=== PATIENT | male | born 1960 | race Caucasian/White ===

== ENCOUNTER 2017-02-27 15:21 | Inpatient (IN) ==
--- NOTE | 2017-02-27 15:38 | Emergency Department Note ---
Disposition Clinical Impression: MOI (acute kidney injury), Dilated bowel Disposition: Admitted As Inpatient Condition: Undetermined Referrals: NO,PCP [Primary Care Provider] - Forms: ED Satisfaction Letter Time of Disposition: 19:04 General Adult HPI - General Chief complaint: ED Altered Mental Status Stated complaint: Chest Pain/AMS Time Seen by Provider: 02/27/17 15:27 Source: patient, EMS Mode of arrival: EMS Limitations: no limitations Nursing Notes Reviewed: Yes Vital Signs Reviewed: Yes - History of Present Illness HPI Narrative: 56-year-old male with history of hypertension, hypothyroidism, Crohn's disease arrives to [facility] emergency department by EMS after the patient was seen in urgent care for complaint of chest pain 2 days. The patient states that he also is experiencing tachypnea and difficulty breathing with this. The patient also states that he is having a left-sided abdominal pain. The patient has been taking all of his medication as prescribed. Patient was sent from urgent care to [facility] emergency department for further evaluation. It was noted urgent care that the patient was altered and when asking the patient was questioned he states whenever he stands up he feels odd. The patient has a blood pressure of 93/51 at this time. He denies any difficulty breathing. The patient's O2 saturation is 94% on 2 L nasal cannula in the room. He does have a history of DVT and is currently taking no anticoagulation. The patient's last DVT was roughly 4 years ago. The patient denies any other complaints at this time to include nausea, vomiting, diarrhea, focalized weakness. He has received 500 mL normal saline via IV route per EMS and arrival to the emergency department. Onset (ago): day(s) (2) Pain Severity: mild Pain Scale: 2 Improves with: nothing Worsens with: nothing - Related Data Home Medications Medication Instructions Recorded Confirmed Amitriptyline HCl 150 mg PO HS 02/27/17 02/27/17 BuPROPion XL (24 HR) [Wellbutrin 150 mg PO DAILY 02/27/17 02/27/17 XL] Cholecalciferol (D-3) [Vitamin D] 5,000 unit PO DAILY 02/27/17 02/27/17 Dicyclomine [Bentyl] 20 mg PO TIDWM 02/27/17 02/27/17 Gabapentin [Neurontin] 100 mg PO TID 02/27/17 02/27/17 Hydrocortisone 1% OINT [Cortaid] 1 appl TP BID PRN 02/27/17 02/27/17 Levothyroxine [Synthroid] 150 mcg PO DAILY 02/27/17 02/27/17 Lipase/Protease/Amylase [Creon Dr 1 each PO TIDWM 02/27/17 02/27/17 12,000 Units Capsule] Metoprolol [Lopressor] 50 mg PO BID 02/27/17 02/27/17 NIFEdipine [Nifedipine ER] 90 mg PO DAILY 02/27/17 02/27/17 Omeprazole [PriLOSEC] 20 - 40 mg PO DAILY 02/27/17 02/27/17 Ondansetron HCl [Zofran] 4 mg PO Q8H PRN 02/27/17 02/27/17 Oxycodone HCl [Roxicodone 30 MG 30 mg PO Q8HR 02/27/17 02/27/17 Immed Release] Allergies Allergy/AdvReac Type Severity Reaction Status Date / Time morphine Allergy Weakness Verified 06/25/15 16:27 NSAIDS (Non-Steroidal Allergy See Verified 06/25/15 16:27 Anti-Inflamma Comments All systems ED: reviewed and negative except as stated. Constitutional: Denies: fever, chills, weakness Eyes: Denies: eye pain, eye discharge, vision change Cardiovascular: Reports: chest pain, dyspnea on exertion. Denies: palpitations Respiratory: Reports: dyspnea. Denies: cough, wheezes, hemoptysis, stridor, sputum production Gastrointestinal: Reports: abdominal pain. Denies: nausea, vomiting, diarrhea, constipation, hematemesis, melena, hematochezia Genitourinary: Denies: urgency, dysuria, frequency, hematuria Musculoskeletal: Denies: back pain, neck pain, arthralgia, myalgia Neurological: Denies: headache, weakness, numbness, paresthesias, confusion, abnormal gait, vertigo Past Medical History - Past Medical History Attestation: Yes The following information was validated with the patient. Source: patient Medical history: Reports: DVT, hypertension, thyroid disease (Hypothyroidism), other (Crohn's disease of small and large intestines; CMV Colitis; Chronic back pain; Pancreatic Insufficiency; Chronic abdominal pain; Iron defiency anemia; Imunocompromised; Alopecia totalis; Eczema) Surgical history: Reports: appendectomy, colectomy Psychiatric history: Reports: no psych history - Social History Smoking Status: Unknown if ever smoked Smokeless Tobacco Status: No Alcohol use: Reports: rarely Drug use: Reports: none Physical Exam - General Limitations: no limitations General appearance: alert, in no apparent distress - Head Head exam: atraumatic, normocephalic, normal inspection - Eye Eye exam: Present: normal appearance, PERRL, EOMI - Neck Neck exam: Present: normal inspection - Chest Chest inspection: Present: normal inspection, symmetric chest wall rise - Respiratory Respiratory exam: Present: normal lung sounds bilaterally - Cardiovascular Cardiovascular exam: Present: regular rate, normal rhythm, normal heart sounds - Abdominal Exam Abdominal exam: Present: soft, tenderness, normal bowel sounds. Absent: distention, guarding, rebound, rigidity Course - Consultations Consultation #1: Spoke with Dr. Banerjee with regards to the multiple dilated small bowel loops. We agreed that this is not a surgical concern at this time. Time: 18:35 Vital Signs Temperature 98.5 F 02/27/17 15:31 Pulse Rate 86 02/27/17 15:31 Respiratory Rate 18 02/27/17 15:31 Blood Pressure 92/60 02/27/17 15:31 O2 Sat by Pulse Oximetry 92 02/27/17 15:31 Temperature 98.5 F 02/27/17 15:31 Pulse Rate 69 02/27/17 17:52 Respiratory Rate 16 02/27/17 17:52 Blood Pressure 114/70 02/27/17 17:52 O2 Sat by Pulse Oximetry 90 02/27/17 17:52 Oxygen Delivery Oxygen Delivery Nasal Cannula Medical Decision Making - [facility] Narrative Medical decision making narrative: Patient hypotension improved with 2 boluses of fluid. The patient is feeling much better now. The patient does have a new acute kidney injury with a creatinine of 4.94 and GFR 12. The patient also CT scan demonstrated multiple dilated bowel loops. The patient states however that he is begun having passing gas here in the emergency department. He said his pain is improved. The patient had an elevated d-dimer and VQ scan is currently pending. Pelvis information will admit the patient to the hospital. Accepted by the hospitalist. - Medical Records Medical records reviewed: Yes I reviewed the patient's medical records. - Lab Data Lab results reviewed: Yes I reviewed the patient's lab results. Result diagrams: 02/27/17 15:58 02/27/17 15:58 Lab Results 02/27/17 02/27/17 02/27/17 Range/Units 15:56 15:58 15:58 WBC 8.6 (4.3-11.1) K/mcL RBC 4.18 L (4.19-5.50) M/mcL Hgb 10.5 L (12.9-16.9) g/dL Hct 34.8 L (37.5-50.1) % MCV 83.3 (83.0-100.0) fL MCH 25.1 L (28.0-33.3) pg MCHC 30.2 L (31.6-35.5) g/dL RDW 14.7 H (11.5-14.5) % Plt Count 334 (140-400) K/mcL MPV 10.0 (9.4-12.4) fL Immature Gran % 0.2 (0-4) % Seg Neutrophils % 47.0 % Lymphocytes % 42.3 % Monocytes % 7.1 % Eosinophils % 2.9 % Basophils % 0.5 % Neutrophils # 4.0 (1.6-8.9) K/mcL Lymphocytes # 3.6 (0.6-4.6) K/mcL Monocytes # 0.6 (0.0-1.3) K/mcL Eosinophils # 0.3 (0.0-0.6) K/mcL Basophils # 0.0 (0.0-0.2) K/mcL Platelet Estimate Normal (Normal) Immature Plt Fraction 3.3 (1.1-6.1) % D-Dimer (0-500) ng/mLFEU Sodium 137 (136-145) mEq/L Potassium 5.2 H (3.5-4.5) mEq/L Chloride 109 (98-109) mEq/L Carbon Dioxide 19 (19-29) mEq/L BUN 45 H (8-26) mg/dL Creatinine 4.94 H (0.72-1.25) mg/dL Est GFR ( Amer) 15 L (> 60) Est GFR (Non-Af Amer) 12 L (> 60) BUN/Creatinine Ratio 9 (6-26) Glucose 93 (70-99) mg/dL Calculated Osmolality 295 (280-300) Lactic Acid (0.5-2.2) mmol/L Calcium 8.2 L (8.6-10.8) mg/dL Total Bilirubin 0.3 (0.2-1.2) mg/dL AST 81 H (5-34) Units/L ALT 27 (0-55) Units/L Alkaline Phosphatase 104 (38-126) Units/L Troponin I (0-0.03) ng/mL Serum Total Protein 7.7 (6.0-8.3) g/dL Albumin 3.9 (3.5-5.0) g/dL Globulin 3.8 H (2.4-3.5) g/dL Albumin/Globulin Ratio 1.0 L (1.1-2.2) TSH (0.350-4.840) mcIU/mL Urine Color Yellow (Yellow) Urine Clarity Clear (Clear) Urine pH 5.5 (5.0-8.0) pH Units Ur Specific Leland 1.025 (1.010-1.025) Urine Protein 30 H (Neg-Trace) mg/dL Urine Glucose (UA) Normal (Normal) mg/dL Urine Ketones Negative (Negative) mg/dL Urine Blood Moderate H (Negative) Urine Nitrite Negative (Negative) Urine Bilirubin Negative (Negative) Urine Urobilinogen Normal (Normal) mg/dL Ur Leukocyte Esterase Negative (Negative) Urine Microscopic RBC 5-15 H (0-3) per hpf Urine Microscopic WBC 0-3 (0-3) per hpf Urine Bacteria Few (None-Few) per hpf Ur Culture Indicated? NO (NO) 02/27/17 02/27/17 02/27/17 Range/Units 15:58 15:58 15:58 WBC (4.3-11.1) K/mcL RBC (4.19-5.50) M/mcL Hgb (12.9-16.9) g/dL Hct (37.5-50.1) % MCV (83.0-100.0) fL MCH (28.0-33.3) pg MCHC (31.6-35.5) g/dL RDW (11.5-14.5) % Plt Count (140-400) K/mcL MPV (9.4-12.4) fL Immature Gran % (0-4) % Seg Neutrophils % % Lymphocytes % % Monocytes % % Eosinophils % % Basophils % % Neutrophils # (1.6-8.9) K/mcL Lymphocytes # (0.6-4.6) K/mcL Monocytes # (0.0-1.3) K/mcL Eosinophils # (0.0-0.6) K/mcL Basophils # (0.0-0.2) K/mcL Platelet Estimate (Normal) Immature Plt Fraction (1.1-6.1) % D-Dimer 1875 H (0-500) ng/mLFEU Sodium (136-145) mEq/L Potassium (3.5-4.5) mEq/L Chloride (98-109) mEq/L Carbon Dioxide (19-29) mEq/L BUN (8-26) mg/dL Creatinine (0.72-1.25) mg/dL Est GFR ( Amer) (> 60) Est GFR (Non-Af Amer) (> 60) BUN/Creatinine Ratio (6-26) Glucose (70-99) mg/dL Calculated Osmolality (280-300) Lactic Acid (0.5-2.2) mmol/L Calcium (8.6-10.8) mg/dL Total Bilirubin (0.2-1.2) mg/dL AST (5-34) Units/L ALT (0-55) Units/L Alkaline Phosphatase (38-126) Units/L Troponin I 0.00 (0-0.03) ng/mL Serum Total Protein (6.0-8.3) g/dL Albumin (3.5-5.0) g/dL Globulin (2.4-3.5) g/dL Albumin/Globulin Ratio (1.1-2.2) TSH 8.419 H (0.350-4.840) mcIU/mL Urine Color (Yellow) Urine Clarity (Clear) Urine pH (5.0-8.0) pH Units Ur Specific Leland (1.010-1.025) Urine Protein (Neg-Trace) mg/dL Urine Glucose (UA) (Normal) mg/dL Urine Ketones (Negative) mg/dL Urine Blood (Negative) Urine Nitrite (Negative) Urine Bilirubin (Negative) Urine Urobilinogen (Normal) mg/dL Ur Leukocyte Esterase (Negative) Urine Microscopic RBC (0-3) per hpf Urine Microscopic WBC (0-3) per hpf Urine Bacteria (None-Few) per hpf Ur Culture Indicated? (NO) 02/27/17 Range/Units 15:58 WBC (4.3-11.1) K/mcL RBC (4.19-5.50) M/mcL Hgb (12.9-16.9) g/dL Hct (37.5-50.1) % MCV (83.0-100.0) fL MCH (28.0-33.3) pg MCHC (31.6-35.5) g/dL RDW (11.5-14.5) % Plt Count (140-400) K/mcL MPV (9.4-12.4) fL Immature Gran % (0-4) % Seg Neutrophils % % Lymphocytes % % Monocytes % % Eosinophils % % Basophils % % Neutrophils # (1.6-8.9) K/mcL Lymphocytes # (0.6-4.6) K/mcL Monocytes # (0.0-1.3) K/mcL Eosinophils # (0.0-0.6) K/mcL Basophils # (0.0-0.2) K/mcL Platelet Estimate (Normal) Immature Plt Fraction (1.1-6.1) % D-Dimer (0-500) ng/mLFEU Sodium (136-145) mEq/L Potassium (3.5-4.5) mEq/L Chloride (98-109) mEq/L Carbon Dioxide (19-29) mEq/L BUN (8-26) mg/dL Creatinine (0.72-1.25) mg/dL Est GFR ( Amer) (> 60) Est GFR (Non-Af Amer) (> 60) BUN/Creatinine Ratio (6-26) Glucose (70-99) mg/dL Calculated Osmolality (280-300) Lactic Acid 0.6 (0.5-2.2) mmol/L Calcium (8.6-10.8) mg/dL Total Bilirubin (0.2-1.2) mg/dL AST (5-34) Units/L ALT (0-55) Units/L Alkaline Phosphatase (38-126) Units/L Troponin I (0-0.03) ng/mL Serum Total Protein (6.0-8.3) g/dL Albumin (3.5-5.0) g/dL Globulin (2.4-3.5) g/dL Albumin/Globulin Ratio (1.1-2.2) TSH (0.350-4.840) mcIU/mL Urine Color (Yellow) Urine Clarity (Clear) Urine pH (5.0-8.0) pH Units Ur Specific Leland (1.010-1.025) Urine Protein (Neg-Trace) mg/dL Urine Glucose (UA) (Normal) mg/dL Urine Ketones (Negative) mg/dL Urine Blood (Negative) Urine Nitrite (Negative) Urine Bilirubin (Negative) Urine Urobilinogen (Normal) mg/dL Ur Leukocyte Esterase (Negative) Urine Microscopic RBC (0-3) per hpf Urine Microscopic WBC (0-3) per hpf Urine Bacteria (None-Few) per hpf Ur Culture Indicated? (NO) - Radiology Data Radiology results reviewed: Yes I reviewed the patient's radiology results. - EKG Data EKG #1 EKG attestation: Yes I reviewed and interpreted this EKG. EKG results narrative: Heart rate 67 bpm. MI interval 174 ms. QTC 46 ms. Normal axis. Normal sinus rhythm. No ST elevation or ST depression noted. The patient does have early repolarization distributed in all leads. Patient's EKG from 03/07/2015 with nonspecific changes since then.
--- NOTE | 2017-02-27 15:51 | Emergency Department Note ---
START Narrative - START START: I examined this patient and my medical decision-making was reviewed with the AERONAUTICAL TEST ENGINEER/PA/Advanced Practice Nurse/Resident Physician. I agree with the documented findings, disposition and treatment plan as described except to the extent set forth below. ED attending note: I saw this Patient with the emergency medicine resident Dr. Baires. Please see a copy of his note for details of the H&P, evaluation, management and disposition of this emergency Department patient. We independently had [id number] contact with the patient. Briefly: A 56-year-old male by EMS for chest pain and "altered mental status" . Patient has Crohn's disease had partial colectomy has hypertension, hypothyroidism states that he was having chest discomfort radiating from the left side of his chest onto the diaphragmatic area with some shortness of breath he is hypotensive WITH systolic of 92 which is abnormal per patient and by all reckoning. He was slightly tachycardic initially. EKG shows nonspecific ST-T changes. He said he was not when he described he was "altered ". He meant that when he stood up he felt like he was not in his right mind". But his neurologic examination is nonfocal he is at baseline GCS 15 NIH's 0. Patient with IV fluids to address the hypotension will get screening labs including a CT scan for his abdominal pain as well x-ray of the chest component among other labs. Admission is anticipated. Providing 45 minutes of critical care services for this patient. Labs and imaging are pending.
[2017-02-27 16:05] LABS: Basophils % 0.5 %; Eosinophils # 0.3 K/mcL (0.0-0.6); Eosinophils % 2.9 %; Hematocrit 34.8 % (37.5-50.1); Hemoglobin 10.5 g/dL (12.9-16.9); Immature Granulocytes % 0.2 % (0-4); Immature Platelets 3.3 % (1.1-6.1); Lymphocytes # 3.6 K/mcL (0.6-4.6); Lymphocytes % 42.3 %; Mean Corpuscular HGB Conc 30.2 g/dL (31.6-35.5); Mean Corpuscular Hemoglobin 25.1 pg (28.0-33.3); Mean Corpuscular Volume 83.3 fL (83.0-100.0); Monocytes # 0.6 K/mcL (0.0-1.3); Monocytes % 7.1 %; Platelet Count 334 K/mcL (140-400); Red Blood Count 4.18 M/mcL (4.19-5.50); Red Cell Distribution Width 14.7 % (11.5-14.5)
[2017-02-27] MEDS ORDERED: 0.9 % Sodium Chloride 1,000 ML IVC ONE (16:06)
[2017-02-27] MEDS ORDERED: 0.9 % Sodium Chloride 1,000 ML ONE (16:07)
[2017-02-27 16:21] LABS: Albumin 3.9 g/dL (3.5-5.0); Bilirubin,Total 0.3 mg/dL (0.2-1.2); Calcium 8.2 mg/dL (8.6-10.8); Globulin 3.8 g/dL (2.4-3.5); Potassium 5.2 mEq/L (3.5-4.5); Total Protein 7.7 g/dL (6.0-8.3)
[2017-02-27 16:44] LABS: Platelet Estimate Normal (Normal)
[2017-02-27 18:38] LABS: Bilirubin,Urine Negative (Negative); Blood,Urine Moderate (Negative); Clarity,Urine Clear (Clear); Color,Urine Yellow (Yellow); Glucose,Urine (UA) Normal (Normal); Ketones,Urine Negative (Negative); Leukocyte Esterase,Urine Negative (Negative); Nitrite,Urine Negative (Negative); PH,Urine 5.5 pH Units (5.0-8.0); Protein,Urine 30 mg/dL (Neg-Trace); Specific Gravity,Urine 1.025 (1.010-1.025); Urobilinogen,Urine Normal (Normal)
[2017-02-27 18:50] LABS: Bacteria,Urine Few per hpf (None-Few); WBC,Urine 0-3 per hpf (0-3)
[2017-02-27] MEDS ORDERED: Naloxone 0.4 MG/ML INJ IVP PRN (21:17)
[2017-02-27] MEDS ORDERED: Ondansetron 4 MG/2 ML VIAL IVP PRN (21:17)
[2017-02-27] MEDS ORDERED: *HR* HYDROmorphone (PF) 1 MG/ML SYRINGE IVP PRN (21:17)
[2017-02-27] MEDS ORDERED: Acetaminophen 325 MG TABLET PO PRN (21:17)
[2017-02-27] MEDS ORDERED: Ipratropium/Albuterol Neb 3 ML IH PRN (21:21)
[2017-02-27] MEDS ORDERED: Calcium Gluconate 1,000 MG in D5% in Water 100 ML IVPB ONE (21:22)
[2017-02-27] MEDS ORDERED: 0.9 % Sodium Chloride 1,000 ML IVC SCH (21:30)
--- NOTE | 2017-02-27 21:33 | Internal Med History&Physical ---
Date of Encounter: 02/27/17 Time of Encounter: 21:29 Assessment and Plan (1) Partial small bowel obstruction Current visit: Yes Status: Acute Likely exacerbated by oxycodone The patient is passing gas, no NG tube for now. Minimize use of narcotics May use small dose of Dilaudid if needed Consider surgical consult if not improving Omeprazole for GI prophylaxis and subcutaneous heparin for DVT prophylaxis The patient will be admitted as inpatient. Expected to stay more than 2 midnights. Full code. Time spent on this admission 40 minutes. High risk due to acute renal failure (2) MOI (acute kidney injury) Current visit: Yes Status: Acute Unclear etiology Continue IV fluids Avoid nephrotoxic agents Consult nephrology (3) Pleuritic chest pain Current visit: Yes Status: Acute Likely secondary to community-acquired pneumonia (4) Community acquired pneumonia Current visit: Yes Status: Acute Start Rocephin and azithromycin (5) Crohn's colitis Current visit: Yes Status: Acute Qualifiers: Digestive disease complication type: without complication Qualified Code(s) : K50.10 - Crohn's disease of large intestine without complications (6) Hyperkalemia Current visit: Yes Status: Acute No cardiacs late Order albuterol, continue IV fluids Order calcium gluconate Consider insulin with glucose (7) Abnormal EKG Current visit: Yes Status: Acute 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 Hodge is a 56 year old male with a past medical history of Crohn's disease, chronic kidney disease stage III, hypothyroidism came to the emergency room complaining of shortness of breath and pleuritic-type chest pain for the past 2 days. Yellowish phlegm. ALSO BEEN COMPLAINING OF abdominal pain, nausea no vomiting, passing gas. CT scan of the abdomen shows ileus versus possible partial small bowel obstruction, shows a Ritcher's hernia, and possible bibasilar opacities compatible with pneumonia and a very distended bladder.. Also he had a very elevated d-dimer at 1875. A VQ scan was done at emergency room showing low probability of pulmonary emboli. He has history of DVT. Potassium is 5.2 and EKG shows some diffuse peaked T waves. I consulted Dr. Joseph, who recommended not to give Kayexalate, to continue calcium gluconate and use some albuterol at the moment. The patient's blood pressure was 93/51 but at the moment he is a stable and complaining of these pleuritic- type of pain on the left thoracic area. 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) Psychiatric history: no psych history - Past Surgical History Surgical History: appendectomy, colectomy, other (2 ileotomies) - Social History Smoking Status: Never smoker Smokeless Tobacco Status: No Alcohol use: rarely Drug use: none - Family History Father Living Status: Age at : 71 Cause of : Heart Failure Hx Family Cardiac Disorders: Yes (Heart Failure, HTN, IN) Hx Family Respiratory Disorders: Yes (Emphysema) Hx Family Cancer: No Hx Family GI Disorders: No Hx Family Genitourinary Disorders: No Hx Family Endocrine Disorder: Yes (DM) Hx Family Musculoskeletal Disorders: No Hx Family Neuromuscular Disorders: No Hx Family Neurologic Disorders: No Hx Family HEENT Disorders: No Hx Family Autoimmune Disorders: No Hx Family Reproductive Disorders: No Hx Family Psychosocial Disorders: No Hx Family Medical Disorders: No - Additional Family History Additional family history: Father with a myocardial infarction in his 30s, CABG and CHF Internal Medicine - H&P: Meds Amitriptyline HCl 150 mg PO HS 02/27/17 [History] BuPROPion XL (24 HR) [Wellbutrin XL] 150 mg PO DAILY 02/27/17 [History] Cholecalciferol (D-3) [Vitamin D] 5,000 unit PO DAILY 02/27/17 [History] Dicyclomine [Bentyl] 20 mg PO TIDWM 02/27/17 [History] Gabapentin [Neurontin] 100 mg PO TID 02/27/17 [History] Hydrocortisone 1% OINT [Cortaid] 1 appl TP BID PRN 02/27/17 [History] Levothyroxine [Synthroid] 150 mcg PO DAILY 02/27/17 [History] Lipase/Protease/Amylase [[place] Begum 12,000 Units Capsule] 1 each PO TIDWM [History] Metoprolol [Lopressor] 50 mg PO BID 02/27/17 [History] NIFEdipine [Nifedipine ER] 90 mg PO DAILY 02/27/17 [History] Omeprazole [PriLOSEC] 20 - 40 mg PO DAILY 02/27/17 [History] Ondansetron HCl [Zofran] 4 mg PO Q8H PRN 02/27/17 [History] Oxycodone HCl [Roxicodone 30 MG Immed Release] 30 mg PO Q8HR 02/27/17 [History] Allergies morphine Allergy (Verified 06/25/15 16:27) Weakness NSAIDS (Non-Steroidal Anti-Inflamma Allergy (Verified 06/25/15 16:27) See Comments All Systems PM: A 10-system review of systems was performed and is negative for pertinent findings except as documented above in the HPI. Review of systems: Short of breath, other systems out of the 10 reviewed were negative, has not had bowel movements yet - Constitutional Vitals: Temp Pulse Resp BP Pulse Ox 97.4 F L 77 21 131/66 92 02/27/17 20:10 02/27/17 20:10 02/27/17 20:10 02/27/17 20:10 02/27/17 20:10 General appearance: Present: A&O X 3 - Head Head exam: Present: atraumatic, normocephalic - Eye Eye exam: Present: PERRL, conjuntiva pink, sclera anicteric Pupils: Present: PERRL - Neck Neck exam general surgery: Present: supple, trachea midline. Absent: lymphadenopathy - Respiratory Respiratory exam: Present: decreased breath sounds, CTAB. Absent: accessory muscle use, rales, rhonchi, wheezes - Cardiovascular Cardiovascular exam: Present: RRR, +S1, +S2. Absent: diastolic murmur, gallop, rubs, systolic murmur - GI/Abdominal GI/Abdominal exam: Present: distended, normal bowel sounds, soft, tenderness ( Left lower quadrant tenderness), no peritoneal signs - Extremities Exam Extremities exam: Present: warm, radial pulses palpable and symetrical. Absent : calf tenderness, cyanotic, pedal edema - Neurological Exam Neurological exam: Present: CN II-XII intact, oriented X3, no focal deficits. Absent: pronater drift, facial droop, speech deficit - Skin Skin exam: Present: dry. Absent: intact (Small abrasion in the right [place]) Internal Med - H&P Results - Labs CBC & Chem 7: 02/27/17 15:58 02/27/17 15:58
[2017-02-27] MEDS ORDERED: Azithromycin 500 MG in D5% in Water 250 ML IVPB SCH (22:00)
[2017-02-28 05:51] LABS: Basophils % 0.3 %; Eosinophils # 0.2 K/mcL (0.0-0.6); Eosinophils % 2.2 %; Hematocrit 32.1 % (37.5-50.1); Hemoglobin 9.4 g/dL (12.9-16.9); Immature Granulocytes % 0.3 % (0-4); Lymphocytes # 1.9 K/mcL (0.6-4.6); Lymphocytes % 26.9 %; Mean Corpuscular HGB Conc 29.3 g/dL (31.6-35.5); Mean Corpuscular Hemoglobin 24.4 pg (28.0-33.3); Mean Corpuscular Volume 83.2 fL (83.0-100.0); Mean Platelet Volume 10.7 fL (9.4-12.4); Monocytes # 0.5 K/mcL (0.0-1.3); Monocytes % 6.7 %; Neutrophils # 4.6 K/mcL (1.6-8.9); Platelet Count 191 K/mcL (140-400); Red Blood Count 3.86 M/mcL (4.19-5.50); Red Cell Distribution Width 14.8 % (11.5-14.5); Segmented Neutrophils % 63.6 %
[2017-02-28 06:03] LABS: Calcium 7.7 mg/dL (8.6-10.8); Chol/HDL Ratio 6.9 (0-4.9); Potassium 4.9 mEq/L (3.5-4.5)
[2017-02-28] MEDS: *HR* Heparin 5,000 UNIT/ML VIAL SQ SCH ×2 (06:05→16:39)
[2017-02-28] MEDS: BuPROPion XL (24 HR) 150 MG TABLET PO SCH (07:43)
[2017-02-28] MEDS: NIFEdipine XL (24 HR) 30 MG TAB.ER.24 PO SCH (08:16)
[2017-02-28] MEDS ORDERED: *HR* HYDROmorphone 2 MG/ML SYRINGE IVP PRN (08:32)
[2017-02-28] MEDS ORDERED: Ipratropium/Albuterol Neb 3 ML IH PRN (08:34)
[2017-02-28] MEDS: 0.9 % Sodium Chloride 1,000 ML IVC SCH ×3 (09:30→23:59)
--- NOTE | 2017-02-28 10:32 | Cardiology Consult Note ---
Date of Encounter: 02/28/17 Time of Encounter: 08:30 Assessment and Plan (1) Abnormal EKG Current Visit: Yes Status: Acute Patient with pleuritic chest pain worse with cough and deep inspiration and currently being treated for community acquired pneumonia, MOI and partial small bowel obstruction showed an abnormal EKG with suspicion for Osbaldo-Parkinson- White. Patient's EKGs taken yesterday and today showed normal LA intervals and bleeding to the QRS with slight slurring on the upstroke but this is nondiagnostic for Nnwmu-Hyctyedhq-Jpbkj. EKG shows normal underlying sinus rhythm, troponins yesterday and today was neg at 0.00, patient's negative BNP. Chest x-ray shows no cardio abnormalities, VQ scan low probability for PE Recommend continuation in medical therapy for patient's other medical issues at this time. No further recommendations from cardiology concerning EKG concerns for WPW at this time thank you for the consult. Please consult if needed in the future. Discussion w patient/family: The assessment and plan as outlined above was discussed with the patient and/or family members who expressed understanding and agreement. All questions were answered. Thank you for involving us in the care of your patient. Please call with any questions. History of Present Illness Consult date: 02/27/17 Requesting physician: Edgar Fields Consult reason: concerning possible WPW Chief complaint: SOB and Pleuritic CP History of present illness: Mr. Hodge is a 56 year old male with past medical history for DVT, HTN, CK D, iron deficiency anemia, Crohn's colitis and partial small bowel obstruction who presented with shortness of breath and pleuritic chest pain 3 days. Reconsult and for possible Wrtcn-Khfolfmqg-Gecvn on EKG. Patient complains of shortness of breath with that sided chest pain is worse with inspiration and coughing. Patient denies any chest pain outside of exacerbating features of coughing and deep inspiration. Patient states chest pain 7 out of 10 and intermittent without radiation symptoms. Patient denies fevers chills loss of consciousness, change in vision and denies vomiting. Patient states he has chronic diarrhea secondary to his Crohn's and nausea. Patient denies tobacco use Past Med Surg Social Fam HX - Past Medical History Attestation: Yes The following information was validated with the patient. 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) Psychiatric history: no psych history - Past Surgical History Surgical History: appendectomy, colectomy, other (2 ileotomies) - Social History Smoking Status: Never smoker Smokeless Tobacco Status: No Alcohol use: rarely Drug use: none - Family History Father Living Status: Age at : 71 Cause of : Heart Failure Hx Family Cardiac Disorders: Yes (Heart Failure, HTN, [place]) Hx Family Respiratory Disorders: Yes (Emphysema) Hx Family Cancer: No Hx Family GI Disorders: No Hx Family Genitourinary Disorders: No Hx Family Endocrine Disorder: Yes (DM) Hx Family Musculoskeletal Disorders: No Hx Family Neuromuscular Disorders: No Hx Family Neurologic Disorders: No Hx Family HEENT Disorders: No Hx Family Autoimmune Disorders: No Hx Family Reproductive Disorders: No Hx Family Psychosocial Disorders: No Hx Family Medical Disorders: No Medications and Allergies Amitriptyline HCl 150 mg PO HS 02/27/17 [History] BuPROPion XL (24 HR) [Wellbutrin XL] 150 mg PO DAILY 02/27/17 [History] Cholecalciferol (D-3) [Vitamin D] 5,000 unit PO DAILY 02/27/17 [History] Dicyclomine [Bentyl] 20 mg PO TIDWM 02/27/17 [History] Gabapentin [Neurontin] 100 mg PO TID 02/27/17 [History] Hydrocortisone 1% OINT [Cortaid] 1 appl TP BID PRN 02/27/17 [History] Levothyroxine [Synthroid] 150 mcg PO DAILY 02/27/17 [History] Lipase/Protease/Amylase [Creon Dr 12,000 Units Capsule] 1 each PO TIDWM [History] Metoprolol [Lopressor] 50 mg PO BID 02/27/17 [History] NIFEdipine [Nifedipine ER] 90 mg PO DAILY 02/27/17 [History] Omeprazole [PriLOSEC] 20 - 40 mg PO DAILY 02/27/17 [History] Ondansetron HCl [Zofran] 4 mg PO Q8H PRN 02/27/17 [History] Oxycodone HCl [Roxicodone 30 MG Immed Release] 30 mg PO Q8HR 02/27/17 [History] Allergies morphine Allergy (Verified 06/25/15 16:27) Weakness NSAIDS (Non-Steroidal Anti-Inflamma Allergy (Verified 06/25/15 16:27) See Comments All Systems Review: A 10-system review of systems was performed and is negative for pertinent findings except as documented above in the HPI. - Constitutional Constitutional: no chills, no fever(s) - EENT Eyes: no blurred vision, no loss of vision - Cardiovascular Cardiovascular: as per HPI - Respiratory Respiratory: cough, dyspnea, no hemoptysis, no wheezing - Gastrointestinal Gastrointestinal: abdominal pain, diarrhea, nausea, no coffee ground emesis, no hematemesis, no hematochezia, no melena - Genitourinary Genitourinary: no dysuria, no hematuria - Musculoskeletal Musculoskeletal: arthralgias - Neurological Neurological: no loss of vision, no numbness, no syncope, no tingling Physical Examination Vital Signs, Last 4 Hours Temp Pulse Resp BP Pulse Ox 02/28/17 09:21 84 106/62 02/28/17 06:50 98.4 F 81 17 99/58 93 General: Conversant, No Apparent Distress HEENT: Atraumatic, Normocephaly, Mucus Membranes Moist Neck: No JVD, Normal carotid pulses Cardiac: Reg Rate and Rhythm, Normal S1 and S2, No Murmur Lungs: Normal Breath Sounds, Other (Rhonchi in bilateral lower lung corona) Neuro: Alert and responsive, No focal deficits noted Abdomen: Soft, Other (Tender to palpation) Skin: No rashes noted on visualized skin Extremities: No Clubbing, No Cyanosis, Normal Pulses ( nonpitting), Other ( Edema to left upper extremity and bilateral lower extremities) Results 02/28/17 05:39 02/28/17 05:39 Lab Results 02/28/17 02/28/17 02/28/17 05:39 05:39 09:07 WBC 7.2 Hgb 9.4 L Hct 32.1 L Plt Count 191 Sodium 132 L Potassium 4.9 H Chloride 109 Carbon Dioxide 14 L BUN 41 H Creatinine 3.40 H Glucose 98 Calcium 7.7 L Troponin I 0.00 B-Natriuretic Peptide 02/28/17 09:07 WBC Hgb Hct Plt Count Sodium Potassium Chloride Carbon Dioxide BUN Creatinine Glucose Calcium Troponin I B-Natriuretic Peptide 124 H - Imaging and Cardiology Chest Xray: report reviewed Other Results: Pulmonary perfusion report reviewed - EKG Interpretation EKG results cardiology: personally reviewed, sinus rhythm (EKG taken in 2016 at 0903 hrs. shows a sinus rhythm with a ventricular rate of 80 bpm with no signs of ischemia in any leads of ST depressions or elevations. Normal LA interval. No LA interval shortening any leads. Not WPW. Previous EKG taken for comparison similar in morphology) Consult Discharge Plan - Plan Referrals: NO,PCP [Primary Care Provider] -
--- NOTE | 2017-02-28 11:03 | Nephrology Consult Note ---
<Kesha Medrano - Last Filed: 02/28/17 16:46> Date of Encounter: 02/28/17 Time of Encounter: 10:52 Assessment and Plan (1) MOI (acute kidney injury) Current Visit: Yes Status: Acute Patient with non-oliguric acute kidney injury on chronic kidney disease, stage III. Cause of MOI is likely multifactorial including patient's small bowel obstruction, episodes of hypotension and anemia on top of chronic kidney disease. Admission creatinine of 4.94. On review of labs, baseline creatinine appears to be 1.2-1.5. Creatinine today improved to 3.4. Expect patient's kidney function to continue to improve, no indication for acute hemodialysis at this time. Will order acute renal failure workup including urinalysis, urine creatinine, urine eosinophils, CPK, and serum uric acid level. Continue to monitor kidney function. Continue IV fluids. Follow a renal protective strategy including pharmacological dosing by GFR, avoiding NSAIDS, and avoiding nephrotoxic medications as able. Patient will likely require follow up with nephrology after discharge to ensure return of kidney function to baseline and for future monitoring. (2) Hyperkalemia Current Visit: Yes Status: Acute Potassium on admission 5.2 with report of peaked T waves on EKG. Hyperkalemia likely secondary to patient's MIO. Nephrology consulted for recommendations. Patient given kayexolate and calcium gluconate. Potassium improved to 4.9 today. Continue to monitor potassium. Expect level to continue to improve as kidney function improves. No indication for hemodialysis at this time. (3) Anemia Current Visit: Yes Status: Chronic Patient with reported history of iron deficiency anemia, however patient is not on iron at home. Hgb 9.4 today form 10.5 on admission. Patient is stable and no signs of acute bleeding. Recommend anemia workup including iron, folic acid and LDH as patient may benefit from supplementation depending on lab findings. Qualifiers: Anemia type: unspecified type Qualified Code(s): D64.9 - Anemia, unspecified (4) Community acquired pneumonia Current Visit: Yes Status: Ruled-out (5) Partial small bowel obstruction Current Visit: Yes Status: Acute (6) Pleuritic chest pain Current Visit: Yes Status: Acute (7) Crohn disease Current Visit: Yes Status: Chronic Qualifiers: Gastrointestinal tract location: small and large intestine Digestive disease complication type: without complication Qualified Code(s): K50.80 - Crohn's disease of both small and large intestine without complications History of Present Illness - Reason for Consult Consult date: 02/28/17 Acute Kidney Injury - Chief Complaint Shortness of breath and chest pain - History of Present Illness Mr Hodge is a 56yo M with PMH including Crohns disease s/p colectomy, hypothyroidism, GERD, chronic back pain, iron deficiency anemia and chronic kidney disease. Patient presented to the ED with increased SOB and pleuritic CP , nausea and abdominal pain for 2 days. Patient found to have community acquired pneumonia and a possible partial small bowel instruction. Nephrology was consult it for acute kidney injury and hyperkalemia. On admission, patients creatinine was 4.94. Potassium was 5.2 with peaked T- waves on EKG according to report. Dr. Joseph was consulted and recommended Kayexolate and calcium gluconate, with no indication for acute hemodialysis. Patient has a history of chronic kidney disease, stage III with a baseline GFR in the 50s, and baseline creatinine 1.2-1.5. Review of chart, no indication the patient has seen a addiction psychiatrist in the past. Patient states he sees a addiction psychiatrist but does not know their name. Patient seen examine this morning. Patient was extremely sleepy and hard to awaken. He is hard to understand on conversation. He reports that he does feel much better than he did yesterday and reports that his chest pain is improving. He reports no urinary symptoms or leg edema. 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) Psychiatric history: no psych history - Past Surgical History Surgical History: appendectomy, colectomy, other (2 ileotomies) - Social History Smoking Status: Never smoker Smokeless Tobacco Status: No Alcohol use: rarely Drug use: none - Family History Father Living Status: Age at : 71 Cause of : Heart Failure Hx Family Cardiac Disorders: Yes (Heart Failure, HTN, [place]) Hx Family Respiratory Disorders: Yes (Emphysema) Hx Family Cancer: No Hx Family GI Disorders: No Hx Family Genitourinary Disorders: No Hx Family Endocrine Disorder: Yes (DM) Hx Family Musculoskeletal Disorders: No Hx Family Neuromuscular Disorders: No Hx Family Neurologic Disorders: No Hx Family HEENT Disorders: No Hx Family Autoimmune Disorders: No Hx Family Reproductive Disorders: No Hx Family Psychosocial Disorders: No Hx Family Medical Disorders: No Medications and Allergies Amitriptyline HCl 150 mg PO HS 02/27/17 [History] BuPROPion XL (24 HR) [Wellbutrin XL] 150 mg PO DAILY 02/27/17 [History] Cholecalciferol (D-3) [Vitamin D] 5,000 unit PO DAILY 02/27/17 [History] Dicyclomine [Bentyl] 20 mg PO TIDWM 02/27/17 [History] Gabapentin [Neurontin] 100 mg PO TID 02/27/17 [History] Hydrocortisone 1% OINT [Cortaid] 1 appl TP BID PRN 02/27/17 [History] Levothyroxine [Synthroid] 150 mcg PO DAILY 02/27/17 [History] Lipase/Protease/Amylase [Creon Dr 12,000 Units Capsule] 1 each PO TIDWM [History] Metoprolol [Lopressor] 50 mg PO BID 02/27/17 [History] NIFEdipine [Nifedipine ER] 90 mg PO DAILY 02/27/17 [History] Omeprazole [PriLOSEC] 20 - 40 mg PO DAILY 02/27/17 [History] Ondansetron HCl [Zofran] 4 mg PO Q8H PRN 02/27/17 [History] Oxycodone HCl [Roxicodone 30 MG Immed Release] 30 mg PO Q8HR 02/27/17 [History] Allergies morphine Allergy (Verified 06/25/15 16:27) Weakness NSAIDS (Non-Steroidal Anti-Inflamma Allergy (Verified 06/25/15 16:27) See Comments Review of Systems Constitutional: no chills, no fever(s), no headache(s), no lethargy, no weakness Cardiovascular: chest pain, no edema, no lightheadedness, no palpitations, no syncope Respiratory: dyspnea, snoring Gastrointestinal: constipation, nausea, no abdominal pain, no vomiting Genitourinary Male: no change in urinary stream, no difficulty urinating, no urinary frequency, no urinary hesitancy, no urinary incontinence, no urinary urgency Neurological: no confusion, no headache(s), no weakness Exam - Vital Signs Vital signs: Initial Vital Signs Temp Pulse Resp BP Pulse Ox 98.5 F 86 18 92/60 92 02/27/17 15:31 02/27/17 15:31 02/27/17 15:31 02/27/17 15:31 02/27/17 15:31 Vital Signs - Last 8 Hours Temp Pulse Resp BP Pulse Ox 02/28/17 09:21 84 106/62 02/28/17 06:50 98.4 F 81 17 99/58 93 02/28/17 04:16 16 93 02/28/17 04:08 98.6 F 76 17 83/47 92 Intake and Output 02/27/17 02/28/17 02/28/17 23:59 07:59 15:59 Intake Total 100 / 100 Output Total 1250 / 1250 400 / 400 Balance -1150 / -1150 -400 / -400 Intake: IV Fluids 100 / 100 Rocephin 1,000 MG In 100 / 100 Dextrose 5% (Minibag+) 100 ML 100 ML @ 200 mls/ hr IVPB DAILY FORMERLY [facility], [facility]1983 Rx#: [id number] Oral 0 / 0 Output: Urine 1250 / 1250 400 / 400 Other: Weight 101.9 kg Patient Weight 02/28/17 23:59 Weight 101.9 kg - General Appearance General appearance: well-developed, well-nourished, appears started age Exam: Acute distress. Difficult to awaken. EENT: PERRL, mucous membranes moist Neck: no JVD Respiratory: course breath sounds, rhonchi Cardiology: no murmurs, no rub, no gallops, regular rate, regular rhythm Gastrointestinal: normoactive bowel sounds, no tenderness, no guarding Integumentary: no rash, warm and dry Neurologic: no focal deficit Additional Comments: Drowsy on conversation. Difficult to understand. Results - Lab Results 02/28/17 05:39 02/28/17 05:39 Most recent lab results Calcium 7.7 mg/dL (8.6-10.8) L 02/28/17 05:39 Consult Discharge Plan - Plan Referrals: NO,PCP [Primary Care Provider] - (patient can not remember his pcp. will get back with staff ) <Fox Rose - Last Filed: 03/01/17 11:40> Date of Encounter: 02/28/17 Exam - Vital Signs Vital signs: Initial Vital Signs Temp Pulse Resp BP Pulse Ox 98.5 F 86 18 92/60 92 02/27/17 15:31 02/27/17 15:31 02/27/17 15:31 02/27/17 15:31 02/27/17 15:31 Vital Signs - Last 8 Hours Temp Pulse Resp BP Pulse Ox 03/01/17 11:24 163/62 03/01/17 10:58 98.1 F 105 16 165/68 98 03/01/17 08:02 98.4 F 90 13 132/71 93 03/01/17 05:05 98.2 F 96 18 152/90 96 Intake and Output 02/28/17 03/01/17 03/01/17 23:59 07:59 15:59 Intake Total 1999 / 1999 1000 / 1000 710 / 710 Output Total 825 / 825 1250 / 1250 400 / 400 Balance 1175 / 1175 -250 / -250 310 / 310 Intake: IV Fluids 1999 1000 / 1000 0.9 % Sodium Chloride 1, 1999 1000 / 1000 000 ML @ 150 mls/hr IVC . Q6H40M FOR[facility]LY [facility], [facility] Rx#:[id number] Oral 0 / 0 0 / 0 710 / 710 Output: Urine 825 / 825 1250 / 1250 400 / 400 Other: Meal Liquid diet Percent of Meal Consumed 0% Weight 100.698 kg Patient Weight 03/01/17 23:59 Weight 100.698 kg Results - Lab Results 03/01/17 02:56 03/01/17 02:56 Most recent lab results Calcium 7.7 mg/dL (8.6-10.8) L 03/01/17 02:56 Urine Creatinine 43 mg/dL 02/28/17 15:09 - Attending Attestation I examined this patient and my medical decision-making was reviewed with the BATCH ANALYST/PA/Advanced Practice Nurse/Resident Physician. I agree with the documented findings, disposition and treatment plan as described except to the extent set forth below. Pt seen and examined admitted with nausea and vomiting with history of cronh's s /p resection found with MOI likely due to hypoperfusion in the setting of hypotension, anemia and N/V. already improving with IVF, will continue. will also order labs to adequately evaluate MOI as noted by resident. Avoid nephrotoxins if possible. No acute indication for LEADER TIER at this time.
--- NOTE | 2017-02-28 13:37 | Internal Med Progress Note ---
Date of Encounter: 02/28/17 Time of Encounter: 11:25 - Assessment and plan (1) MOI (acute kidney injury) Current Visit: Yes Status: Acute Assessment and plan: Improving. Could be related to dehydration. Patient having good urine output. Nephrology input appreciated. Continue IV hydration. Follow renal function closely. Moderate risk for complications (2) Partial small bowel obstruction Current Visit: Yes Status: Acute Assessment and plan: CT of the abdomen and pelvis does not show any obstruction. Patient most likely has underlying ileus. He is not having any nausea or vomiting. We will advance diet and treat symptomatically with Reglan. (3) Pleuritic chest pain Current Visit: Yes Status: Acute Assessment and plan: Currently not having denies any significant chest pain. Troponins were negative. Cardiology evaluated patient for possible abnormal EKG. No further workup recommended. (4) Community acquired pneumonia Current Visit: Yes Status: Ruled-out Assessment and plan: Chest x-ray done today does not show any infiltrates. We will stop antibiotics. No clinical signs of pneumonia. (5) Hyperkalemia Current Visit: Yes Status: Acute Assessment and plan: Due to acute kidney injury. Slightly improved. We will continue to follow potassium levels. (6) Abnormal EKG Current Visit: Yes Status: Acute Assessment and plan: No signs of WPW on EKG review. (7) Crohn disease Current Visit: Yes Status: Chronic Assessment and plan: Continue symptomatic treatment plan for home medications. Qualifiers: Gastrointestinal tract location: small and large intestine Digestive disease complication type: without complication Qualified Code(s): K50.80 - Crohn's disease of both small and large intestine without complications (8) Anemia Current Visit: Yes Status: Chronic Assessment and plan: Patient has chronic anemia. Could be related to his Crohn's disease and poor absorption. We will check iron, folic acid and B12 levels. Qualifiers: Anemia type: unspecified type Qualified Code(s): D64.9 - Anemia, unspecified - Subjective Interval history: Patient is extremely somnolent this morning after he received IV pain medications. He has not had any nausea or vomiting today. Tolerating clear liquid diet well. No fever or chills reported overnight. He is eager to advance diet - Constitutional Vitals: Temp Pulse Resp BP Pulse Ox 97.4 F L 82 20 116/59 93 02/28/17 11:32 02/28/17 11:32 02/28/17 11:32 02/28/17 11:32 02/28/17 11:32 General appearance: Present: cooperative, mild distress, A&O X 3, answers questions appropriately - Respiratory Respiratory exam: Present: CTAB. Absent: accessory muscle use, rales, rhonchi, wheezes - Cardiovascular Cardiovascular exam: Present: RRR, +S1, +S2. Absent: diastolic murmur, gallop, rubs, systolic murmur - GI/Abdominal GI/Abdominal exam: Present: diminished bowel sounds, soft, no peritoneal signs. Absent: distended, tenderness - Extremities Exam Extremities exam: Present: warm, radial pulses palpable and symetrical. Absent : calf tenderness, cyanotic, pedal edema - Neurological Exam Neurological exam: Present: alert, oriented X3, no focal deficits. Absent: facial droop, speech deficit Internal Medicine: Result - Labs CBC & Chem 7: 02/28/17 05:39 02/28/17 05:39 Labs: Short CBC 02/28/17 Range/Units 05:39 WBC 7.2 (4.3-11.1) K/mcL Hgb 9.4 L (12.9-16.9) g/dL Hct 32.1 L (37.5-50.1) % Plt Count 191 (140-400) K/mcL Neutrophils # 4.6 (1.6-8.9) K/mcL BMP 02/28/17 05:39 Sodium 132 L Potassium 4.9 H Chloride 109 Carbon Dioxide 14 L BUN 41 H Creatinine 3.40 H Glucose 98 Calcium 7.7 L Cardiac Enzymes 02/28/17 Range/Units 09:07 Troponin I 0.00 (0-0.03) ng/mL - ABG Interpretation ABG results: PT/INR, D-dimer D-Dimer 1875 ng/mLFEU (0-500) H 02/27/17 15:58 - Impressions Impressions Chest X-Ray 02/28/17 08:08 IMPRESSION: Stable exam from chest x-ray 02/27/2017 without evidence for acute cardiopulmonary process. The minimal linear and ground-glass opacities noted to the lower lobes bilaterally on CT abdomen and pelvis 02/27/2017 are not radiographically evident. Given the ground-glass appearance to focus to the left lower lobe on CT abdomen and pelvis consider follow-up CT chest in 3 months to assure resolution and if still persistent at that time continued long-term follow-up to eventually establish long-term stability. D/ / 02/28/2017 08:45:31 Herberth Dacosta MD / Alexandria Damon Interpreting Provider: Herberth Dacosta MD Consult Discharge Plan - Plan Referrals: NO,PCP [Primary Care Provider] - (patient can not remember his pcp. will get back with staff ) - Attending Attestation This document has been at least partially created by [employer] recognition technology by Dr. Antonio. Errors in grammar, wording or other phrases may exist. If errors are found after the documentation is signed, they will be addressed individually in the addendum section of this document when appropriate.
[2017-02-28] MEDS: Gabapentin 100 MG CAPSULE PO SCH ×2 (15:03→21:50)
[2017-02-28] MEDS: *HR* OxyCODONE Immed Rel 15 MG TABLET PO PRN (23:59)
[2017-03-01 03:28] LABS: Basophils % 0.5 %; Eosinophils # 0.2 K/mcL (0.0-0.6); Eosinophils % 5.4 %; Hemoglobin 8.6 g/dL (12.9-16.9); Immature Granulocytes % 0.5 % (0-4); Lymphocytes # 1.9 K/mcL (0.6-4.6); Lymphocytes % 43.5 %; Mean Corpuscular HGB Conc 29.7 g/dL (31.6-35.5); Mean Corpuscular Hemoglobin 24.4 pg (28.0-33.3); Mean Corpuscular Volume 82.2 fL (83.0-100.0); Mean Platelet Volume 10.3 fL (9.4-12.4); Monocytes # 0.3 K/mcL (0.0-1.3); Monocytes % 7.2 %; Neutrophils # 1.9 K/mcL (1.6-8.9); Platelet Count 204 K/mcL (140-400); Red Blood Count 3.53 M/mcL (4.19-5.50); Red Cell Distribution Width 14.7 % (11.5-14.5); Segmented Neutrophils % 42.9 %
[2017-03-01 03:42] LABS: Calcium 7.7 mg/dL (8.6-10.8); Potassium 4.6 mEq/L (3.5-4.5); Uric Acid 5.8 mg/dL (3.5-7.2)
[2017-03-01 03:45] LABS: % Iron Saturation 8 % (20-55); Iron 27 mcg/dL (65-175); Transferrin 244 mg/dL (174-364)
[2017-03-01 04:06] LABS: Ferritin 48 ng/ml (22-275)
[2017-03-01 04:17] LABS: Folate 7.6 ng/mL (7.0-31.4)
[2017-03-01] MEDS: *HR* Heparin 5,000 UNIT/ML VIAL SQ SCH (06:04)
[2017-03-01] MEDS: *HR* OxyCODONE Immed Rel 15 MG TABLET PO PRN (08:37)
[2017-03-01] MEDS: NIFEdipine XL (24 HR) 30 MG TAB.ER.24 PO SCH (08:38)
[2017-03-01] MEDS: Gabapentin 100 MG CAPSULE PO SCH (08:38)
[2017-03-01] MEDS: BuPROPion XL (24 HR) 150 MG TABLET PO SCH (08:38)
[2017-03-01] MEDS: 0.9 % Sodium Chloride 1,000 ML IVC SCH (08:39)
--- NOTE | 2017-03-01 08:54 | Electrocardiograph Report ---
[place] [address] Test Date: 2017-02-27 Pat Name: Akin Hodge Department: [id number] Room: 2A14 Gender: M Telesales Manager: JACK : 1960 Requested By: Gabo Baires Order Number: [id number] Reading MD: Yosvany Ford DO Measurements Intervals [place] Rate: 68 P: 7 OR: 169 QRS: 28 QRSD: 117 T: 31 QT: 388 QTc: 405 Interpretive Statements SINUS RHYTHM Incomplete RBBB ST ELEVATION, PROBABLY EARLY REPOLARIZATION Electronically Signed On 03-01-2017 8:52:25 EDT by Yosvany Ford DO
--- NOTE | 2017-03-01 08:55 | Electrocardiograph Report ---
[place] [address] Test Date: 2017-02-27 Pat Name: Akin Hodge Department: 102 Room: 2A14 Gender: M Sales Representative [employer]: Shantanu : 1960 Requested By: Franchesca Antonio Order Number: [id number] Reading MD: Yosvany Ford DO Measurements Intervals [place] Rate: 67 P: 35 MO: 174 QRS: 19 QRSD: 108 T: 17 QT: 390 QTc: 406 Interpretive Statements SINUS RHYTHM EARLY REPOLARIZATION [ST ELEVATION WITH NORMALLY INFLECTED T WAVE] Electronically Signed On 03-01-2017 8:53:48 EDT by Yosvany Ford DO
--- NOTE | 2017-03-01 11:41 | Nephrology Progress Note ---
Date of Encounter: 03/01/17 Time of Encounter: 11:00 - Assessment and Plan (1) MOI (acute kidney injury) Current Visit: Yes Status: Acute SCr continues to improve with IVF at 2.06, GFR 34, will continue UOP adequate CPK elevated at 2920, mild ?rhabdo, will monitor Uric WNL Urine eosinophils WNL Cotinue to avoid nephrotoins if possible (2) Hyperkalemia Current Visit: Yes Status: Acute Potassium almost normalized at 4.6, will monitor (3) Anemia Current Visit: Yes Status: Chronic Hgb dropping at 8.6 from 9.4 there's likely a dilutional component but iron deficinecy also noted Iron repletion per primary team Qualifiers: Anemia type: unspecified type Qualified Code(s): D64.9 - Anemia, unspecified Subjective Interval history: Pt seen and examined resting but arousable, no overnight issues. Objective - Vital Signs Vital signs: Vital Signs Temp Pulse Resp BP Pulse Ox 03/01/17 11:24 163/62 03/01/17 10:58 98.1 F 105 16 165/68 98 03/01/17 08:02 98.4 F 90 13 132/71 93 03/01/17 05:05 98.2 F 96 18 152/90 96 03/01/17 00:24 98.3 F 94 16 136/56 95 02/28/17 19:02 98.7 F 102 16 131/71 94 02/28/17 15:00 97.9 F 90 17 145/74 93 Intake and Output 02/28/17 03/01/17 03/01/17 23:59 07:59 15:59 Intake Total 1999 1000 / 1000 710 / 710 Output Total 825 / 825 1250 / 1250 400 / 400 Balance 1175 / 1175 -250 / -250 310 / 310 Intake: IV Fluids 1999 1000 / 1000 0.9 % Sodium Chloride 1, 1999 1000 / 1000 000 ML @ 150 mls/hr IVC . Q6H40M [facility] Rx#:[id number] Oral 0 / 0 0 / 0 710 / 710 Output: Urine 825 / 825 1250 / 1250 400 / 400 Other: Meal Liquid diet Percent of Meal Consumed 0% Weight 100.698 kg Patient Weight 03/01/17 23:59 Weight 100.698 kg - General Appearance General appearance: Present: chronically ill (NAD) EENT: Present: ATNC, mucous membranes moist Neck: Present: no JVD, supple Additional Comments: good areation ant bilat Cardiology: Present: no edema, normal S1, normal S2 Gastrointestinal: Present: no tenderness, no guarding Integumentary: Present: warm and dry Additional Comments: resting but arousable Musculoskeletal: Present: no deformities Psychiatric: Present: cooperative - Lab 03/01/17 02:56 03/01/17 02:56 Most recent lab results Calcium 7.7 mg/dL (8.6-10.8) L 03/01/17 02:56 Urine Creatinine 43 mg/dL 02/28/17 15:09 Consult Discharge Plan - Plan Referrals: NO,PCP [Primary Care Provider] - (patient can not remember his pcp. will get back with staff )
[2017-03-01 12:04] VITALS: BP 132/62
--- NOTE | 2017-03-01 12:17 | Discharge Summary ---
Date of Encounter: 03/01/17 Time of Encounter: 12:13 - Discharge Diagnosis (1) MOI (acute kidney injury) Priority: Primary Status: Acute (2) Partial small bowel obstruction Priority: Secondary Status: Acute (3) Pleuritic chest pain Priority: Secondary Status: Resolved (4) Hyperkalemia Priority: Secondary Status: Acute (5) Abnormal EKG Priority: Secondary Status: Acute (6) Crohn disease Priority: Secondary Status: Chronic Qualifiers: Gastrointestinal tract location: small and large intestine Digestive disease complication type: without complication Qualified Code(s): K50.80 - Crohn's disease of both small and large intestine without complications (7) Anemia Priority: Secondary Status: Chronic Qualifiers: Anemia type: iron deficiency Iron deficiency anemia type: other iron deficiency Qualified Code(s): D50.8 - Other iron deficiency anemias - Discharge Medications Prescriptions: Ferrous Sulfate [Iron] 325 mg PO BID #60 capsule.er Home Medications: Amitriptyline HCl 150 mg PO HS 02/27/17 [History] BuPROPion XL (24 HR) [Wellbutrin Xl] 150 mg PO DAILY 02/27/17 [History] Cholecalciferol (D-3) [Vitamin D] 5,000 unit PO DAILY 02/27/17 [History] Dicyclomine [Bentyl] 20 mg PO TIDWM 02/27/17 [History] Gabapentin [Neurontin] 100 mg PO TID 02/27/17 [History] Hydrocortisone 1% OINT [Cortaid] 1 appl TP BID PRN 02/27/17 [History] Levothyroxine [Synthroid] 150 mcg PO DAILY 02/27/17 [History] Lipase/Protease/Amylase [Creon Dr 12,000 Units Capsule] 1 each PO TIDWM [History] Metoprolol [Lopressor] 50 mg PO BID 02/27/17 [History] NIFEdipine [Nifedipine ER] 90 mg PO DAILY 02/27/17 [History] Omeprazole [PriLOSEC] 20 - 40 mg PO DAILY 02/27/17 [History] Ondansetron HCl [Zofran] 4 mg PO Q8H PRN 02/27/17 [History] Oxycodone HCl [Roxicodone 30 MG Immed Release] 30 mg PO Q8HR 02/27/17 [History] Ferrous Sulfate [Iron] 325 mg PO BID #60 capsule.er 03/01/17 [Rx] Allergies/Adverse Reactions: Allergies morphine Allergy (Verified 06/25/15 16:27) Weakness NSAIDS (Non-Steroidal Anti-Inflamma Allergy (Verified 06/25/15 16:27) See Comments Procedures/tests Complete & Pending: Procedures Performed prior 72 hours Category Date Time Status ECG 12 lead ECG [ECG] Routine Y 02/27/17 15:30 Completed EKG [ECG 12 lead ECG] [ECG] Stat Y 02/28/17 08:23 Ordered Date of admission: 02/27/17 21:17 Primary care physician: PCP NO Consults: 02/27/17 21:27 Consult to Nephrology [CONS] Routine Consulting Provider: Adelfo Joseph Reason for Consult: arf Call Completed: Yes 02/27/17 21:35 Consult to Cardiology [CONS] Routine Comment: Consulting Provider: Cardiology Liset Reason for Consult: questionable WPW Call Completed: No Discharging clinician: Franchesca Antonio Anticipated date of discharge: 03/01/17 - Patient Status Disposition: Home, Self-Care Condition: Good Functional capacity at discharge: independent ambulation Overall status at discharge: patient is progressing back to baseline - Discharge Instructions Instructions: Anemia (GEN) Follow Up With: NO,PCP [Primary Care Provider] - (patient can not remember his pcp. will get back with staff ) Additional Instructions: Keep yourself well hydrated. If he develop any swelling in your legs are you notice decrease in urine output, please come back to the ER. - Diet and Activity Activity: increase activity as tolerated Diet: advance to your usual diet Hospital course: Mr. Hodge is a 56 year old male patient with history of Crohn's disease who presented to the ER with complaints of some shortness of breath and pleuritic chest chest pain along with yellow sputum and abdominal pain. Initial CT scan of the abdomen showed possible ileus versus small bowel obstruction with basal opacities consistent with atelectasis or pneumonia. Patient was started on treatment with IV antibiotics, kept nothing by mouth and was given IV fluids. On presentation, he also had elevated potassium and acute kidney injury with a BUN of 45 and creatinine of 4.94. Patient was diagnosed with acute kidney injury. With IV hydration, his renal function has improved and the patient has been having good urine output. Nephrology was consulted and it appears that the patient may have acute kidney injury related to mild rhabdomyolysis as his CPK levels are elevated. The patient has had no episodes of nausea or vomiting and is tolerating clear liquid and full liquid diet well without any worsening of abdominal pain. He has had bowel movements. No such I believe his ileus is improving. The patient also has chronic anemia due to iron deficiency with low iron levels. These will be replaced. His hemoglobin level today was 8.6. His baseline hemoglobin levels are between 8 and 9. A repeat chest x-ray done yesterday did not show any pneumonia. Assess his antibiotics have been stopped. Patient did not have leukocytosis or fever on presentation. Cardiology was consulted due to presence of slight abnormal EKG findings. They do not believe that the patient has any WPW per their evaluation. Patient also had an elevated d-dimer and a VQ scan was done in the ER which showed low probability for PE. At this time, as the patient's renal function is improving, and is tolerating diet well, he is stable to be discharged home. He will follow up with his PCP for further management of his chronic medical conditions. - Time Spent with Patient Total time spent providing and/or coordinating discharge services: Greater than 30 minutes (35 min) - Constitutional Vitals: Temp Pulse Resp BP Pulse Ox 98.1 F 105 16 132/62 98 03/01/17 10:58 03/01/17 10:58 03/01/17 10:58 03/01/17 11:24 03/01/17 10:58 General appearance: Present: cooperative, mild distress, A&O X 3, answers questions appropriately - Neck Neck exam general surgery: Present: supple, trachea midline. Absent: lymphadenopathy - Cardiovascular Cardiovascular exam: Present: RRR, +S1, +S2. Absent: diastolic murmur, gallop, rubs, systolic murmur - GI/Abdominal GI/Abdominal exam: Present: normal bowel sounds, soft, no peritoneal signs. Absent: distended, tenderness - Extremities Exam Extremities exam: Present: warm, radial pulses palpable and symetrical. Absent : calf tenderness, cyanotic, pedal edema - Neurological Exam Neurological exam: Present: alert, CN II-XII intact, oriented X3, no focal deficits. Absent: facial droop, speech deficit - Attending Attestation This document has been at least partially created by Dragon medical voice recognition technology by Dr. Antonio. Errors in grammar, wording or other phrases may exist. If errors are found after the documentation is signed, they will be addressed individually in the addendum section of this document when appropriate.
== END 2017-03-01 14:16 | disposition home or self-care (01) | DRG 389 ==
LOC: EMEROO 15:21 → 2ANU 15:21
PROVIDERS: ADMIT Registered Nurse; ATTEND Internal Medicine

== ENCOUNTER 2017-04-09 17:36 | Inpatient (IN) ==
[2017-04-09] MEDS ORDERED: *HR* HYDROmorphone (PF) 1 MG/ML SYRINGE IVP ONE (18:12)
[2017-04-09 18:32] LABS: Calcium 8.7 mg/dL (8.6-10.8); Potassium 4.6 mEq/L (3.5-4.5)
[2017-04-09 18:33] LABS: Basophils % 0.2 %; Eosinophils # 0.1 K/mcL (0.0-0.6); Eosinophils % 0.5 %; Hematocrit 32.3 % (37.5-50.1); Hemoglobin 9.9 g/dL (12.9-16.9); Immature Granulocytes % 0.5 % (0-4); Lymphocytes # 1.6 K/mcL (0.6-4.6); Lymphocytes % 12.6 %; Mean Corpuscular HGB Conc 30.7 g/dL (31.6-35.5); Mean Corpuscular Volume 81.6 fL (83.0-100.0); Mean Platelet Volume 9.2 fL (9.4-12.4); Monocytes # 0.8 K/mcL (0.0-1.3); Monocytes % 6.4 %; Neutrophils # 10.3 K/mcL (1.6-8.9); Platelet Count 288 K/mcL (140-400); Red Blood Count 3.96 M/mcL (4.19-5.50); Red Cell Distribution Width 17.2 % (11.5-14.5); Segmented Neutrophils % 79.8 %
[2017-04-09 18:41] LABS: INR 1.5; Prothrombin Time 16.2 Seconds (9.4-12.1)
[2017-04-09 18:44] LABS: Activated Partial Thrombo Time 28.3 Seconds (26.0-36.0)
[2017-04-09] MEDS ORDERED: Azithromycin 500 MG in D5% in Water 250 ML IVPB ONE (19:14)
--- NOTE | 2017-04-09 19:39 | Emergency Department Note ---
Disposition Clinical Impression: Community acquired pneumonia Disposition: Admitted As Inpatient Condition: Good Time of Disposition: 19:45 Chest Pain HPI - General Chief Complaint: ED Chest Pain Stated Complaint: chest pain Time Seen by Provider: 04/09/17 17:41 Source: patient Limitations: no limitations Vital Signs Reviewed: Yes Nursing Notes Reviewed: Yes - History of Present Illness HPI Narrative: 56-year-old male presents with concerns of right-sided chest pain and difficulty breathing. Patient states the symptoms started within the past 24 hours. He denies swelling of the lower extremities prior to the onset of his symptoms. Patient denies fever, chills, nausea, vomiting. No history of recent trauma. Patient denies diaphoresis or palpitations. He reports a history of previous blood clot in the right lower extremity however denies similar symptoms within the past few days. Severity scale (1-10): 8 - Related Data Home Medications Medication Instructions Recorded Confirmed Amitriptyline HCl 150 mg PO HS 02/27/17 04/09/17 BuPROPion XL (24 HR) [Wellbutrin 150 mg PO DAILY 02/27/17 02/27/17 Xl] Cholecalciferol (D-3) [Vitamin D] 5,000 unit PO DAILY 02/27/17 04/09/17 Dicyclomine [Bentyl] 20 mg PO TIDWM 02/27/17 04/09/17 Gabapentin [Neurontin] 100 mg PO TID 02/27/17 04/09/17 Hydrocortisone 1% OINT [Cortaid] 1 appl TP BID PRN 02/27/17 04/09/17 Levothyroxine [Synthroid] 150 mcg PO DAILY 02/27/17 04/09/17 Lipase/Protease/Amylase [Creon Dr 1 each PO TIDWM 02/27/17 04/09/17 12,000 Units Capsule] Metoprolol [Lopressor] 50 mg PO BID 02/27/17 04/09/17 NIFEdipine [Nifedipine ER] 90 mg PO DAILY 02/27/17 04/09/17 Omeprazole [PriLOSEC] 20 - 40 mg PO DAILY 02/27/17 04/09/17 Ondansetron HCl [Zofran] 4 mg PO Q8H PRN 02/27/17 04/09/17 Oxycodone HCl [Roxicodone 30 MG 30 mg PO Q8HR 02/27/17 04/09/17 Immed Release] Adalimumab [Humira] 40 mg SQ Q2W 04/09/17 04/09/17 Previous Rx's Medication Instructions Recorded Ferrous Sulfate [Iron] 325 mg PO BID #60 capsule.er 03/01/17 Allergies Allergy/AdvReac Type Severity Reaction Status Date / Time morphine Allergy Weakness Verified 06/25/15 16:27 NSAIDS (Non-Steroidal Allergy See Verified 06/25/15 16:27 Anti-Inflamma Comments All systems ED: reviewed and negative except as stated. Constitutional: Reports: fever (Subjective), weakness Cardiovascular: Reports: chest pain, dyspnea on exertion. Denies: palpitations Respiratory: Reports: cough, dyspnea, wheezes. Denies: hemoptysis Gastrointestinal: Denies: abdominal pain, nausea, vomiting, diarrhea Chest Pain PMH - Past Medical History Medical history: Reports: DVT, hypertension, thyroid disease, other Surgical history: Reports: appendectomy, colectomy, other (2 ileotomies) Psychiatric history: Reports: no psych history - Social History Smoking Status: Never smoker Alcohol use: Reports: rarely Drug use: Reports: none Physical Exam General: Alert and in no acute distress Skin: Warm, dry, intact Head: Normocephalic and atraumatic Neck: Supple, trachea midline and no tenderness Cardiovascular: RRR, no murmur, normal perfusion Respiratory: Rhonchi present in the right lower lobe otherwise lung sounds are present in bilateral lung corona and no without wheezing Musculoskeletal: Normal strength, no tenderness, swelling or deformity GI: Soft, nontender, nondistended. Bowel sounds present Neuro: A&O to person, place, time and situation. No focal deficits noted on exam Psychiatric: cooperative and appropriate mood and affect. - General Limitations: no limitations General appearance: alert, in no apparent distress Course Vital Signs Temperature 97.9 F 04/09/17 17:40 Pulse Rate 101 04/09/17 17:40 Respiratory Rate 16 04/09/17 17:40 Blood Pressure 128/81 04/09/17 17:40 O2 Sat by Pulse Oximetry 81 04/09/17 17:40 Temperature 98.5 F 04/09/17 22:23 Pulse Rate 94 04/09/17 22:23 Respiratory Rate 18 04/09/17 22:23 Blood Pressure 127/74 04/09/17 22:23 O2 Sat by Pulse Oximetry 88 04/09/17 22:23 Oxygen Delivery Oxygen Delivery Nasal Cannula Chest Pain - MDM Narrative Medical decision making narrative: On x-ray patient likely has pneumonia based off cough and patchy infiltrate appearance. Patient does have a leukocytosis. Patient is tachycardic and did become hypoxic when taken off oxygen down to 85%. It is possible the patient may have a PE considering his history of DVT of the right lower extremity. I am unable to obtain a CTA of the chest secondary to the patient's decreased kidney function and I believe a VQ scan will not provide us sufficient information secondary to the patient's likely pneumonia. I discussed the patient's case and presentation with the hospitalist, Dr. Smith who states he will make the decision whether to place the patient on anticoagulation or order the VQ scan. On reevaluation the patient continued to be hypoxic, I ordered the CT scan and informed the resident hospitalist of my decision, and they agreed to review the orders. - Medical Records Medical records reviewed: Yes I reviewed the patient's medical records. - Lab Data Lab results reviewed: Yes I reviewed the patient's lab results. Result diagrams: 04/09/17 18:24 04/09/17 18:11 Lab Results 04/09/17 04/09/17 04/09/17 Range/Units 18:11 18:24 18:24 WBC 13.0 H (4.3-11.1) K/mcL RBC 3.96 L (4.19-5.50) M/mcL Hgb 9.9 L (12.9-16.9) g/dL Hct 32.3 L (37.5-50.1) % MCV 81.6 L (83.0-100.0) fL MCH 25.0 L (28.0-33.3) pg MCHC 30.7 L (31.6-35.5) g/dL RDW 17.2 H (11.5-14.5) % Plt Count 288 (140-400) K/mcL MPV 9.2 L (9.4-12.4) fL Immature Gran % 0.5 (0-4) % Seg Neutrophils % 79.8 % Lymphocytes % 12.6 % Monocytes % 6.4 % Eosinophils % 0.5 % Basophils % 0.2 % Neutrophils # 10.3 H (1.6-8.9) K/mcL Lymphocytes # 1.6 (0.6-4.6) K/mcL Monocytes # 0.8 (0.0-1.3) K/mcL Eosinophils # 0.1 (0.0-0.6) K/mcL Basophils # 0.0 (0.0-0.2) K/mcL PT 16.2 H (9.4-12.1) Seconds INR 1.5 APTT 28.3 (26.0-36.0) Seconds D-Dimer (0-500) ng/mLFEU Sodium 132 L (136-145) mEq/L Potassium 4.6 H (3.5-4.5) mEq/L Chloride 103 (98-109) mEq/L Carbon Dioxide 23 (19-29) mEq/L BUN 24 (8-26) mg/dL Creatinine 2.24 H (0.72-1.25) mg/dL Est GFR ( Amer) 37 L (> 60) Est GFR (Non-Af Amer) 31 L (> 60) BUN/Creatinine Ratio 11 (6-26) Glucose 141 H (70-99) mg/dL Calculated Osmolality 280 (280-300) Calcium 8.7 (8.6-10.8) mg/dL Troponin I (0-0.03) ng/mL Ethyl Alcohol (0-10) mg/dL 04/09/17 04/09/17 04/09/17 Range/Units 18:24 18:24 18:24 WBC (4.3-11.1) K/mcL RBC (4.19-5.50) M/mcL Hgb (12.9-16.9) g/dL Hct (37.5-50.1) % MCV (83.0-100.0) fL MCH (28.0-33.3) pg MCHC (31.6-35.5) g/dL RDW (11.5-14.5) % Plt Count (140-400) K/mcL MPV (9.4-12.4) fL Immature Gran % (0-4) % Seg Neutrophils % % Lymphocytes % % Monocytes % % Eosinophils % % Basophils % % Neutrophils # (1.6-8.9) K/mcL Lymphocytes # (0.6-4.6) K/mcL Monocytes # (0.0-1.3) K/mcL Eosinophils # (0.0-0.6) K/mcL Basophils # (0.0-0.2) K/mcL PT (9.4-12.1) Seconds INR APTT (26.0-36.0) Seconds D-Dimer 3235 H (0-500) ng/mLFEU Sodium (136-145) mEq/L Potassium (3.5-4.5) mEq/L Chloride (98-109) mEq/L Carbon Dioxide (19-29) mEq/L BUN (8-26) mg/dL Creatinine (0.72-1.25) mg/dL Est GFR ( Amer) (> 60) Est GFR (Non-Af Amer) (> 60) BUN/Creatinine Ratio (6-26) Glucose (70-99) mg/dL Calculated Osmolality (280-300) Calcium (8.6-10.8) mg/dL Troponin I 0.00 (0-0.03) ng/mL Ethyl Alcohol < 10 (0-10) mg/dL - Radiology Data Radiology results reviewed: Yes I reviewed the patient's radiology results. Heart Score - Score History: Slightly Suspicious EKG: Normal Age: 45-65 Risk Factors: 1-2 risk factors Troponin: Less than normal limit HEART Score Total: 2 Critical Care Time Critical Care Time: Yes Total Critical Care Time: 35 Attestation: The high probability of a clinically significant, sudden or life threatening deterioration of the respiratory system(s) required my full and direct attention , intervention and personal management. The aggregate critical care time was 35 minutes. This time is in addition to time spent performing reported procedures but includes the following: x Data Review and interpretation x Patient assessment and monitoring of vital signs x Documentation x Medication orders and management
[2017-04-09 20:24] LABS: ABG Base Excess -1.6 mEq/L (-2.0 to 3.0); ABG HCO3 24.3 mEQ/L (21-27); ABG Oxygen Saturation 82 % (95-98); ABG PCO2 45 mmHg (35-45); ABG PH 7.34 pH Units (7.32-7.45); ABG TCO2 25.7 mEq/L (20-26)
[2017-04-09 20:25] LABS: Blood Gas Liter Flow 4 L/MIN
[2017-04-09 20:26] LABS: ABG PO2 49 mmHg (85-104); Blood Gas FiO2 36 %
[2017-04-09] MEDS ORDERED: 0.9 % Sodium Chloride 1,000 ML IVC ONE (21:01)
[2017-04-09] MEDS ORDERED: Ondansetron ODT 4 MG TAB.RAPDIS SL PRN (21:07)
[2017-04-09] MEDS ORDERED: Naloxone 0.4 MG/ML INJ IVP PRN (21:07)
--- NOTE | 2017-04-09 21:11 | Internal Med History&Physical ---
<Gabo Laird - Last Filed: 04/10/17 00:00> Date of Encounter: 04/09/17 Time of Encounter: 20:30 Assessment and Plan (1) Acute and chronic respiratory failure with hypoxia Current visit: Yes Status: Acute 56-year-old male presenting with shortness of breath, tachypnea was found to be hypoxic requiring 5 L nasal cannula oxygen to maintain oxygen saturations greater than 90%. Patient denies home use of oxygen. Chest x-ray demonstrated diffuse right lung opacification, which is concerning for pneumonia. - ABG: PH 7.34, PCO2 45, PO2 49, bicarbonate 24.3 The patient's PO2 was low at 49 secondary to increased AA gradient with shunting. (2) HAP (hospital-acquired pneumonia) Current visit: Yes Status: Acute 56-year-old male who is on Humira for Crohn's disease and psoriasis presented with shortness of breath, tachypnea and hypoxia. Heart is 5 L nasal cane oxygen to maintain oxygen saturations greater than 90%. Chest x-ray demonstrates diffuse right lung opacifications. No recent sick exposures, however he was hospitalized from 02/27/2017 to 03/01/2017 for chest pain. - Blood gas as mentioned above. - Patient is immunocompromised making him high risk for atypical pneumonia. Plan: - BiPAP - Wean oxygen requirements as tolerated - Sputum culture and Gram stain - Strep a antigen - Legionella urine antigen - Blood cultures - Urine culture - Broad spectrum antibiotic coverage with vancomycin, Levaquin and ceftriaxone - 1 L normal saline bolus. (3) Sepsis Current visit: Yes Status: Acute Patient meets sepsis criteria with tachypnea, tachycardia, leukocytosis and a lung source. Plan: - As discussed above Qualifiers: Qualified Code(s): A41.9 - Sepsis, unspecified organism (4) Acute on chronic renal failure Current visit: Yes Status: Acute Patient has a history of stage III chronic kidney disease. His elevated creatinine at 2.24 and a creatinine in the 30s. This is likely secondary to poor volume intake during acute illness. Plan: - Patient receiving IV fluids - Renally dose antibiotics and avoid nephrotoxic medications including NSAIDs. - Hold any ANDRADE or ARB medications. - Monitor renal function with an labs Qualifiers: Qualified Code(s): N17.9 - Acute kidney failure, unspecified; N18.9 - Chronic kidney disease, unspecified (5) Crohn's colitis Current visit: No Status: Acute Stable. Continue home medications Qualifiers: Digestive disease complication type: without complication Qualified Code(s) : K50.10 - Crohn's disease of large intestine without complications (6) Anemia Current visit: No Status: Chronic Patient has a history of microcytic anemia with a current hemoglobin of 9.9 which is around the patient's baseline. This is likely secondary to chronic kidney disease and iron deficiency from poor absorption with Crohn's disease and previous abdominal surgeries. Iron studies performed last month demonstrated iron deficiency anemia. Plan: - Monitor with a.m. labs - PRBC transfusion if hemoglobin drops below 7.0 - Continue patient's home dose of ferrous sulfate Qualifiers: Anemia type: iron deficiency Iron deficiency anemia type: other iron deficiency Qualified Code(s): D50.8 - Other iron deficiency anemias (7) HTN (hypertension) Current visit: Yes Status: Acute Patient has a history of hypertension for which he takes nifedipine extended release, Lopressor 50 mg by mouth twice a day. Plan: - Hold nifedipine extended release until patient is more stable to avoid hypotension as the patient's blood pressure is normotensive currently. Qualifiers: Hypertension type: essential hypertension Qualified Code(s): I10 - Essential (primary) hypertension (8) Hypothyroidism Current visit: Yes Status: Acute Continue home dose of levothyroxine. Qualifiers: Qualified Code(s): E03.9 - Hypothyroidism, unspecified (9) DVT prophylaxis Current visit: Yes Status: Acute Subcutaneous Lovenox daily. Internal Medicine - H&P: HPI Chief complaint: short of breath Admitted From: Emergency Dept Plans for Post Hospital Care: Home History of present illness: Mr. Hodge is a 56 year old male past medical history Crohn's, hypertension , psoriasis presented to the emergency department with shortness of breath and lethargy. Patient states that he was at [place] [address] on Friday started feeling short of breath and weak. He went home to lay down and developed a cough that had yellow sputum production. He was not feeling well throughout the weekend with his symptoms progressively getting worse to the point where he could barely get out of bed, decreased appetite and occasional nausea and vomiting with oral intake. He said Friday he felt so weak he could not even lift his head off his pillow. He also says that he has a sharp pain in his right chest when he takes a deep breath but it is absent at rest and does not radiate. He denies any fevers, chills but did have diaphoresis. He denies any palpitations or chest pressure or radiation to the jaw or arm. He has chronic abdominal tenderness with his Crohn's disease and chronic diarrhea but denies any constipation, burning with urination or discolored urine or blood in his bowel movements. He denies any other concerning medical symptoms or signs. He denies any sick contacts, denies any inhalation of gases, smoking any tobacco or drug products. Past Med Surg Social Fam HX - Past Medical History Medical history: DVT, hypertension, thyroid disease, other Psychiatric history: no psych history - Past Surgical History Surgical History: appendectomy, colectomy, other (2 ileotomies) - Social History Smoking Status: Never smoker Smokeless Tobacco Status: No Alcohol use: rarely Drug use: none - Family History Father Living Status: Hx Family Cardiac Disorders: Yes (Heart Failure, HTN, VT) Hx Family Respiratory Disorders: Yes (Emphysema) Hx Family Cancer: No Hx Family GI Disorders: No Hx Family Endocrine Disorder: Yes (DM) Hx Family Neuromuscular Disorders: No Hx Family Neurologic Disorders: No Hx Family HEENT Disorders: No Hx Family Autoimmune Disorders: No Internal Medicine - H&P: Meds Amitriptyline HCl 150 mg PO HS 02/27/17 [History] BuPROPion XL (24 HR) [Wellbutrin Xl] 150 mg PO DAILY 02/27/17 [History] Cholecalciferol (D-3) [Vitamin D] 5,000 unit PO DAILY 02/27/17 [History] Dicyclomine [Bentyl] 20 mg PO TIDWM 02/27/17 [History] Gabapentin [Neurontin] 100 mg PO TID 02/27/17 [History] Hydrocortisone 1% OINT [Cortaid] 1 appl TP BID PRN 02/27/17 [History] Levothyroxine [Synthroid] 150 mcg PO DAILY 02/27/17 [History] Lipase/Protease/Amylase [Creon Dr 12,000 Units Capsule] 1 each PO TIDWM [History] Metoprolol [Lopressor] 50 mg PO BID 02/27/17 [History] NIFEdipine [Nifedipine ER] 90 mg PO DAILY 02/27/17 [History] Omeprazole [PriLOSEC] 20 - 40 mg PO DAILY 02/27/17 [History] Ondansetron HCl [Zofran] 4 mg PO Q8H PRN 02/27/17 [History] Oxycodone HCl [Roxicodone 30 MG Immed Release] 30 mg PO Q8HR 02/27/17 [History] Ferrous Sulfate [Iron] 325 mg PO BID #60 capsule.er 03/01/17 [Rx] Adalimumab [Humira] 40 mg SQ Q2W 04/09/17 [History] Allergies morphine Allergy (Verified 06/25/15 16:27) Weakness NSAIDS (Non-Steroidal Anti-Inflamma Allergy (Verified 06/25/15 16:27) See Comments All Systems PM: A 10-system review of systems was performed and is negative for pertinent findings except as documented above in the HPI. - Constitutional Constitutional: lethargy, malaise, night sweats, no chills, no fever(s) - EENT Eyes: no change in vision, no discharge, no pain, no photophobia Ears: no ear discharge, no ear pain, no tinnitus Nose, mouth and throat: no dysphagia, no nasal discharge, no neck pain, no sore throat - Cardiovascular Cardiovascular ROS IM: chest pain (Right-sided), no diaphoresis, no dyspnea, no lightheadedness, no palpitations, no syncope - Respiratory Respiratory: cough, dyspnea, dyspnea on exertion, excessive phlegm production, change in phlegm color, no wheezing - Gastrointestinal Gastrointestinal: diarrhea, no abdominal pain, no constipation, no cramping, no hematemesis, no hematochezia, no melena, no nausea, no vomiting - Genitourinary Genitourinary ROS male: no dysuria, no hematuria - Musculoskeletal Musculoskeletal ROS IM: no numbness, no tingling - Integumentary Integumentary IM: no rash, no unusual bruising - Neurological Neurological ROS: no confusion, no convulsions, no focal weakness, no numbness, no tingling, no tremor(s) - Hematologic/Lymphatic Hematologic/Lymphatic: no easy bruising - Constitutional Vitals: Temp Pulse Resp BP Pulse Ox 97.9 F 87 0 0/0 88 04/09/17 17:40 04/09/17 18:30 04/09/17 20:32 04/09/17 20:32 04/09/17 18:30 Exam: General: Patient alert, awake, oriented 3, interactive, in no acute distress HEENT: Normocephalic, atraumatic, pupils equal reactive to light, nasal cavity patent and open septum median position, oral mucosa moist, poor dentition, neck supple trachea midline no palpable lymphadenopathy, no thyromegaly. Chest: Symmetric bilateral correlating with respiratory effort, effort nonlabored. Cardiac: Regular rate and rhythm, positive S1 and S2. no bruits appreciated bilateral carotids, Radial pulses 2+ bilateral, posterior tibial and dorsal pedal pulses 2+ bilateral. Respiratory: Tachypnea, bilateral rhonchi at lung bases, rhonchi throughout the right lung corona and clear to auscultation in the left upper lung field. Abdomen: Soft, mild tenderness, positive bowel sounds, no palpable masses appreciated on examination Extremities: Symmetric bilateral, bilateral lower extremities without erythema or edema patient moving all 4 extremities spontaneously. Neurologic: No focal deficits appreciated on examination. Face symmetric, muscle strength symmetric bilateral upper and lower extremities. Skin: Silvery salmon skin colored lesion located on the right knee. Hypopigmented lesions around bilateral ankles. Internal Med - H&P Results - Labs CBC & Chem 7: 04/09/17 18:24 04/09/17 18:11 - ABG Interpretation ABG results: 04/09/17 20:18 ABG pH 7.34 ABG pCO2 45 ABG pO2 49 L* ABG HCO3 24.3 ABG Total CO2 25.7 ABG O2 Saturation 82 L ABG Base Excess -1.6 <Jai Sequeira - Last Filed: 04/10/17 03:00> Date of Encounter: 04/09/17 Assessment and Plan (1) GERD (gastroesophageal reflux disease) Current visit: Yes Status: Chronic will continue PPI Qualifiers: Esophagitis presence: without esophagitis Qualified Code(s): K21.9 - Gastro -esophageal reflux disease without esophagitis (2) Depression Current visit: Yes Status: Chronic will continue his home medications Qualifiers: Depression Type: major depressive disorder Major depression recurrence: recurrent Active/Remission status: in partial remission Qualified Code(s): F33.41 - Major depressive disorder, recurrent, in partial remission Internal Medicine - H&P: HPI History of present illness: Mr. Hodge is a 56 year old male All Systems PM: A 10-system review of systems was performed and is negative for pertinent findings except as documented above in the HPI. - Constitutional Vitals: Temp Pulse Resp BP Pulse Ox 98.5 F 94 18 127/74 88 04/09/17 22:23 04/09/17 22:23 04/09/17 22:23 04/09/17 22:23 04/09/17 22:23 Internal Med - H&P Results - Labs CBC & Chem 7: 04/10/17 01:22 04/10/17 01:22 Labs: Short CBC 04/10/17 Range/Units 01:22 WBC 14.4 H (4.3-11.1) K/mcL Hgb 8.9 L (12.9-16.9) g/dL Hct 28.2 L (37.5-50.1) % Plt Count 252 (140-400) K/mcL Neutrophils # 10.4 H (1.6-8.9) K/mcL BMP 04/10/17 01:22 Sodium 128 L Potassium 3.5 D Chloride 97 L Carbon Dioxide 24 BUN 29 H Creatinine 2.42 H Glucose 159 H Calcium 8.3 L Liver Function 04/10/17 Range/Units 01:22 Total Bilirubin 0.4 (0.2-1.2) mg/dL Direct Bilirubin 0.2 (0.0-0.5) mg/dL AST 13 (5-34) Units/L ALT 9 (0-55) Units/L Alkaline Phosphatase 101 (38-126) Units/L Albumin 2.7 L (3.5-5.0) g/dL - ABG Interpretation ABG results: 04/09/17 04/10/17 20:18 Unknown ABG pH 7.34 7.30 L ABG pCO2 45 44 ABG pO2 49 L* 54 L ABG HCO3 24.3 21.6 ABG Total CO2 25.7 23.0 ABG O2 Saturation 82 L 84 L ABG Base Excess -1.6 -4.6 L - Diagnostic Studies Chest x-ray Status: image reviewed by me - Attending Attestation I personally interviewed and examined this patient and my medical decision- making was reviewed with the Resident Physician. I agree with the documented findings, disposition and treatment plan as described. Jai Sequeira MD, MPH Hospitalist
[2017-04-09] MEDS ORDERED: Hydrocortisone 1% OINT 28 GM TUBE TP PRN (21:38)
[2017-04-09] MEDS ORDERED: (Adalimumab [Humira] 40 MG) SQ SCH (21:45)
[2017-04-09] MEDS ORDERED: Azithromycin 500 MG in D5% in Water 250 ML IVPB SCH (22:00)
[2017-04-09] MEDS ORDERED: Vancomycin (wt based) 1,000 MG VIAL IVPB SCH (22:00)
[2017-04-09] MEDS: *HR* OxyCODONE Immed Rel 15 MG TABLET PO SCH (23:14)
[2017-04-09] MEDS: Vancomycin 1,750 MG in D5% in Water 500 ML IVPB SCH (23:16)
[2017-04-10 00:05] LABS: ABG Base Excess -4.6 mEq/L (-2.0 to 3.0); ABG HCO3 21.6 mEQ/L (21-27); ABG Oxygen Saturation 84 % (95-98); ABG PCO2 44 mmHg (35-45); ABG PO2 54 mmHg (85-104)
[2017-04-10 00:11] LABS: Blood Gas FiO2 36 %; Blood Gas Liter Flow 4 L/MIN
[2017-04-10] MEDS: Acetaminophen 325 MG TABLET PO PRN ×3 (00:37→20:35)
[2017-04-10] MEDS ORDERED: Levofloxacin 750 MG/150 ML 750 MG/150 ML BAG IVPB SCH (01:00)
[2017-04-10 01:37] LABS: Basophils % 0.2 %; Eosinophils # 0.2 K/mcL (0.0-0.6); Eosinophils % 1.6 %; Hematocrit 28.2 % (37.5-50.1); Hemoglobin 8.9 g/dL (12.9-16.9); Immature Granulocytes % 0.5 % (0-4); Lymphocytes # 2.9 K/mcL (0.6-4.6); Mean Corpuscular HGB Conc 31.6 g/dL (31.6-35.5); Mean Corpuscular Hemoglobin 26.1 pg (28.0-33.3); Mean Corpuscular Volume 82.7 fL (83.0-100.0); Mean Platelet Volume 9.5 fL (9.4-12.4); Monocytes # 0.8 K/mcL (0.0-1.3); Monocytes % 5.8 %; Neutrophils # 10.4 K/mcL (1.6-8.9); Platelet Count 252 K/mcL (140-400); Red Blood Count 3.41 M/mcL (4.19-5.50); Red Cell Distribution Width 17.2 % (11.5-14.5); Segmented Neutrophils % 71.9 %
[2017-04-10 01:48] LABS: INR 1.4; Prothrombin Time 15.6 Seconds (9.4-12.1)
[2017-04-10 01:50] LABS: Calcium 8.3 mg/dL (8.6-10.8); Magnesium 1.5 mg/dL (1.6-2.6); Phosphorous 3.5 mg/dL (2.3-4.7)
[2017-04-10 01:51] LABS: Activated Partial Thrombo Time 27.6 Seconds (26.0-36.0); Albumin 2.7 g/dL (3.5-5.0); Albumin/Globulin Ratio 0.6 (1.1-2.2); Bilirubin,Direct 0.2 mg/dL (0.0-0.5); Bilirubin,Indirect 0.2 mg/dL (0.0-1.2); Bilirubin,Total 0.4 mg/dL (0.2-1.2); Globulin 4.4 g/dL (2.4-3.5); Total Protein 7.1 g/dL (6.0-8.3)
[2017-04-10 01:52] LABS: Potassium 3.5 mEq/L (3.5-4.5)
[2017-04-10] MEDS ORDERED: Magnesium Sulfate 2 GM in D5% in Water 100 ML IVPB ONE (03:01)
[2017-04-10] MEDS: 0.9 % Sodium Chloride 1,000 ML IVC SCH ×2 (03:37→23:47)
[2017-04-10] MEDS: *HR* Enoxaparin 40 MG/0.4 ML SYRINGE SQ SCH (05:25)
[2017-04-10] MEDS ORDERED: Pantoprazole 40 MG VIAL IVP SCH (09:00)
[2017-04-10] MEDS: Gabapentin 100 MG CAPSULE PO SCH ×3 (09:19→20:34)
[2017-04-10] MEDS: Piperacillin/Tazobactam 3.375 GM in D5% in Water (Mini-Bag+) 100 ML IVPB SCH ×2 (09:20→16:02)
[2017-04-10] MEDS: *HR* OxyCODONE Immed Rel 15 MG TABLET PO SCH ×3 (09:20→23:49)
--- NOTE | 2017-04-10 10:58 | Internal Med Progress Note ---
Date of Encounter: 04/10/17 Time of Encounter: 10:56 - Assessment and plan (1) Acute and chronic respiratory failure with hypoxia Current Visit: Yes Status: Acute Assessment and plan: Secondary to severe HCAP no reported history of lung disease however patient may have underlying lung disease given exposure history will continue empiric abx with Vancomycin, Zosyn, and Levaquin f/u blood cultures O2 supplementation bronchodilators as needed closely monitor O2 saturation if continues to have persistent increase inO2 demand will obtain CT chest in am will closely monitor respiratory status. (2) HAP (hospital-acquired pneumonia) Current Visit: Yes Status: Acute Assessment and plan: as listed above (3) MOI (acute kidney injury) Current Visit: No Status: Acute Assessment and plan: Likely secondary underlying infection will hold ANDRADE inh at this time renally dose abx avoid nephrotoxic agents monitor renal function closely (4) Crohn disease Current Visit: No Status: Chronic Assessment and plan: stable continue home medications Qualifiers: Gastrointestinal tract location: small and large intestine Digestive disease complication type: without complication Qualified Code(s): K50.80 - Crohn's disease of both small and large intestine without complications (5) Anemia Current Visit: No Status: Chronic Assessment and plan: H&H low but acceptable no acute bleeding noted at this time continue to monitor H&H and transfuse as needed continue home dose of ferrous sulfate Qualifiers: Anemia type: iron deficiency Iron deficiency anemia type: other iron deficiency Qualified Code(s): D50.8 - Other iron deficiency anemias (6) HTN (hypertension) Current Visit: Yes Status: Chronic Assessment and plan: BP within acceptable range will closely monitor and hold antihypertensives if SBP<120 Qualifiers: Hypertension type: essential hypertension Qualified Code(s): I10 - Essential (primary) hypertension (7) Hypothyroidism Current Visit: Yes Status: Chronic Assessment and plan: continue home medications Qualifiers: Hypothyroidism type: unspecified Qualified Code(s): E03.9 - Hypothyroidism , unspecified (8) DVT prophylaxis Current Visit: Yes Status: Acute Assessment and plan: Lovenox SQ - Subjective Interval history: Patient seen and examined at bedside. Resting in bed and reports of feeling better compared to previous day but continues to have increased O2 demand. Reports of living with his gf who smokes and he has constant exposure to second hand smoke. - Constitutional Vitals: Temp Pulse Resp BP Pulse Ox 97.7 F 84 16 109/58 100 04/10/17 07:30 04/10/17 07:30 04/10/17 07:30 04/10/17 07:30 04/10/17 07:30 General appearance: Present: A&O X 3, no acute distress, answers questions appropriately - Head Head exam: Present: atraumatic, normocephalic - Eye Eye exam: Present: conjuntiva pink, sclera anicteric - Respiratory Respiratory exam: Absent: wheezes (coarse breath sounds diffusely worst on the right ) - Cardiovascular Cardiovascular exam: Present: RRR, +S1, +S2 - GI/Abdominal GI/Abdominal exam: Present: normal bowel sounds, soft. Absent: diminished bowel sounds, tenderness - Extremities Exam Extremities exam: Present: warm, radial pulses palpable and symetrical. Absent : calf tenderness, cyanotic, pedal edema - Neurological Exam Neurological exam: Present: alert, oriented X3 - Psychiatric Psychiatric exam: Present: normal affect, normal mood Internal Medicine: Result - Labs CBC & Chem 7: 04/10/17 01:22 04/10/17 01:22 Labs: Short CBC 04/10/17 Range/Units 01:22 WBC 14.4 H (4.3-11.1) K/mcL Hgb 8.9 L (12.9-16.9) g/dL Hct 28.2 L (37.5-50.1) % Plt Count 252 (140-400) K/mcL Neutrophils # 10.4 H (1.6-8.9) K/mcL BMP 04/10/17 01:22 Sodium 128 L Potassium 3.5 D Chloride 97 L Carbon Dioxide 24 BUN 29 H Creatinine 2.42 H Glucose 159 H Calcium 8.3 L Liver Function 04/10/17 Range/Units 01:22 Total Bilirubin 0.4 (0.2-1.2) mg/dL Direct Bilirubin 0.2 (0.0-0.5) mg/dL AST 13 (5-34) Units/L ALT 9 (0-55) Units/L Alkaline Phosphatase 101 (38-126) Units/L Albumin 2.7 L (3.5-5.0) g/dL - ABG Interpretation ABG results: ABG ABG pH 7.30 pH Units (7.32-7.45) L 04/10/17 Unknown ABG pCO2 44 mmHg (35-45) 04/10/17 Unknown ABG pO2 54 mmHg (85-104) L 04/10/17 Unknown ABG O2 Saturation 84 % (95-98) L 04/10/17 Unknown PT/INR, D-dimer PT 15.6 Seconds (9.4-12.1) H 04/10/17 01:22 D-Dimer 3235 ng/mLFEU (0-500) H 04/09/17 18:24 Consult Discharge Plan - Plan Referrals: NO,PCP [Primary Care Provider] -
[2017-04-10] MEDS ORDERED: Ipratropium/Albuterol Neb 3 ML IH PRN (10:59)
--- NOTE | 2017-04-10 15:12 | Electrocardiograph Report ---
[place] [id number] Test Date: 2017-04-09 Pat Name: Akin Hodge Department: 103 Room: 2NE20 Gender: M [employer]: : 1960 Requested By: Jordin Quintanilla Order Number: [id number] Reading MD: Carlito Crabtree MD Measurements Intervals [place] Rate: 97 P: 11 SC: 157 QRS: 17 QRSD: 110 T: 32 QT: 335 QTc: 389 Interpretive Statements SINUS RHYTHM LEFT ATRIAL ENLARGEMENT Electronically Signed On 04-10-2017 15:10:03 EDT by Carlito Crabtree MD
[2017-04-10] MEDS: Vancomycin 1,750 MG in D5% in Water 500 ML IVPB SCH (23:51)
[2017-04-11] MEDS: Piperacillin/Tazobactam 3.375 GM in D5% in Water (Mini-Bag+) 100 ML IVPB SCH ×3 (00:07→16:04)
[2017-04-11 05:21] LABS: Basophils % 0.2 %; Eosinophils # 0.3 K/mcL (0.0-0.6); Eosinophils % 3.2 %; Hematocrit 29.2 % (37.5-50.1); Immature Granulocytes % 0.6 % (0-4); Immature Platelets 2.6 % (1.1-6.1); Lymphocytes # 1.2 K/mcL (0.6-4.6); Lymphocytes % 14.7 %; Mean Corpuscular HGB Conc 30.8 g/dL (31.6-35.5); Mean Corpuscular Hemoglobin 25.4 pg (28.0-33.3); Mean Corpuscular Volume 82.3 fL (83.0-100.0); Monocytes # 0.7 K/mcL (0.0-1.3); Monocytes % 7.9 %; Neutrophils # 6.2 K/mcL (1.6-8.9); Nucleated Red Blood Cells 0.2 /100 WBC (0); Platelet Count 233 K/mcL (140-400); Red Blood Count 3.55 M/mcL (4.19-5.50); Red Cell Distribution Width 17.1 % (11.5-14.5); Segmented Neutrophils % 73.4 %
[2017-04-11 05:27] LABS: Calcium 8.6 mg/dL (8.6-10.8); Magnesium 1.6 mg/dL (1.6-2.6); Phosphorous 3.4 mg/dL (2.3-4.7)
[2017-04-11] MEDS: *HR* Enoxaparin 40 MG/0.4 ML SYRINGE SQ SCH (05:51)
[2017-04-11 06:01] LABS: Potassium 4.6 mEq/L (3.5-4.5)
[2017-04-11 06:10] LABS: Platelet Clumps Few (Not Present); Platelet Estimate Normal (Normal)
[2017-04-11] MEDS: Gabapentin 100 MG CAPSULE PO SCH ×3 (09:39→20:23)
[2017-04-11] MEDS: *HR* OxyCODONE Immed Rel 15 MG TABLET PO SCH ×2 (09:39→16:04)
[2017-04-11] MEDS ORDERED: Furosemide 40 MG/4 ML VIAL IVP ONE (11:34)
--- NOTE | 2017-04-11 11:36 | Internal Med Progress Note ---
Date of Encounter: 04/11/17 Time of Encounter: 11:35 - Assessment and plan (1) Acute and chronic respiratory failure with hypoxia Current Visit: Yes Status: Acute Assessment and plan: Secondary to severe HCAP no reported history of lung disease however patient may have underlying lung disease given exposure history will continue empiric abx with Vancomycin, Zosyn, and d/c Levaquin f/u blood cultures O2 supplementation bronchodilators as needed closely monitor O2 saturation will give one time dose of Lasix 40mg IV given clinical exam. will closely monitor respiratory status. (2) HAP (hospital-acquired pneumonia) Current Visit: Yes Status: Acute Assessment and plan: as listed above (3) MOI (acute kidney injury) Current Visit: No Status: Acute Assessment and plan: Likely secondary underlying infection will hold ANDRADE inh at this time renally dose abx avoid nephrotoxic agents monitor renal function closely Renal function improved from previous day (4) Crohn disease Current Visit: No Status: Chronic Assessment and plan: stable continue home medications Qualifiers: Gastrointestinal tract location: small and large intestine Digestive disease complication type: without complication Qualified Code(s): K50.80 - Crohn's disease of both small and large intestine without complications (5) Anemia Current Visit: No Status: Chronic Assessment and plan: H&H low but acceptable no acute bleeding noted at this time continue to monitor H&H and transfuse as needed continue home dose of ferrous sulfate Qualifiers: Anemia type: iron deficiency Iron deficiency anemia type: other iron deficiency Qualified Code(s): D50.8 - Other iron deficiency anemias (6) HTN (hypertension) Current Visit: Yes Status: Chronic Assessment and plan: BP within acceptable range will closely monitor and hold antihypertensives if SBP<120 Qualifiers: Hypertension type: essential hypertension Qualified Code(s): I10 - Essential (primary) hypertension (7) Hypothyroidism Current Visit: Yes Status: Chronic Assessment and plan: continue home medications Qualifiers: Hypothyroidism type: unspecified Qualified Code(s): E03.9 - Hypothyroidism , unspecified (8) DVT prophylaxis Current Visit: Yes Status: Acute Assessment and plan: Lovenox SQ - Subjective Interval history: Patient seen and examined at bedside. continues to be O2 dependent but reports of feeling better compared to previous day. CT chest consistent with diffuse pna with small right pleural effusion and trace left pleural effusion - Constitutional Vitals: Temp Pulse Resp BP Pulse Ox 97.8 F 69 20 135/74 93 04/11/17 11:14 04/11/17 11:14 04/11/17 11:14 04/11/17 11:14 04/11/17 11:14 General appearance: Present: A&O X 3, no acute distress, answers questions appropriately - Head Head exam: Present: atraumatic, normocephalic - Eye Eye exam: Present: conjuntiva pink, sclera anicteric - Respiratory Respiratory exam: Absent: respiratory distress Additional comments: basilar crackles on the right, coarse breath sounds diffusely - Cardiovascular Cardiovascular exam: Present: RRR, +S1, +S2. Absent: diastolic murmur, gallop, rubs, systolic murmur - GI/Abdominal GI/Abdominal exam: Present: normal bowel sounds, soft, no peritoneal signs. Absent: distended, tenderness - Extremities Exam Extremities exam: Present: warm, radial pulses palpable and symetrical. Absent : calf tenderness, cyanotic, pedal edema - Neurological Exam Neurological exam: Present: alert, oriented X3 - Psychiatric Psychiatric exam: Present: normal affect, normal mood Internal Medicine: Result - Labs CBC & Chem 7: 04/11/17 04:53 04/11/17 04:53 - ABG Interpretation ABG results: ABG ABG pH 7.30 pH Units (7.32-7.45) L 04/10/17 Unknown ABG pCO2 44 mmHg (35-45) 04/10/17 Unknown ABG pO2 54 mmHg (85-104) L 04/10/17 Unknown ABG O2 Saturation 84 % (95-98) L 04/10/17 Unknown PT/INR, D-dimer PT 15.6 Seconds (9.4-12.1) H 04/10/17 01:22 D-Dimer 3235 ng/mLFEU (0-500) H 04/09/17 18:24 Consult Discharge Plan - Plan Referrals: NO,PCP [Primary Care Provider] -
[2017-04-12] MEDS: Piperacillin/Tazobactam 3.375 GM in D5% in Water (Mini-Bag+) 100 ML IVPB SCH ×3 (00:08→17:08)
[2017-04-12] MEDS: Vancomycin 1,750 MG in D5% in Water 500 ML IVPB SCH ×2 (00:14→21:39)
[2017-04-12] MEDS: *HR* OxyCODONE Immed Rel 15 MG TABLET PO SCH ×3 (00:19→17:08)
[2017-04-12] MEDS: *HR* Enoxaparin 40 MG/0.4 ML SYRINGE SQ SCH (04:42)
[2017-04-12 04:55] LABS: Basophils % 0.5 %; Eosinophils # 0.3 K/mcL (0.0-0.6); Eosinophils % 5.3 %; Hematocrit 31.1 % (37.5-50.1); Hemoglobin 9.6 g/dL (12.9-16.9); Immature Granulocytes % 0.9 % (0-4); Lymphocytes # 1.9 K/mcL (0.6-4.6); Lymphocytes % 30.2 %; Mean Corpuscular HGB Conc 30.9 g/dL (31.6-35.5); Mean Corpuscular Hemoglobin 24.9 pg (28.0-33.3); Mean Corpuscular Volume 80.8 fL (83.0-100.0); Mean Platelet Volume 9.1 fL (9.4-12.4); Monocytes # 0.6 K/mcL (0.0-1.3); Monocytes % 8.8 %; Neutrophils # 3.5 K/mcL (1.6-8.9); Platelet Count 314 K/mcL (140-400); Red Blood Count 3.85 M/mcL (4.19-5.50); Red Cell Distribution Width 17.4 % (11.5-14.5); Segmented Neutrophils % 54.3 %
[2017-04-12 05:06] LABS: Calcium 9.3 mg/dL (8.6-10.8); Magnesium 1.6 mg/dL (1.6-2.6); Phosphorous 3.6 mg/dL (2.3-4.7); Potassium 4.3 mEq/L (3.5-4.5)
[2017-04-12] MEDS: Gabapentin 100 MG CAPSULE PO SCH ×3 (08:30→21:13)
[2017-04-12] MEDS: NIFEdipine XL (24 HR) 30 MG TAB.ER.24 PO SCH (08:31)
--- NOTE | 2017-04-12 09:50 | Internal Med Progress Note ---
Date of Encounter: 04/12/17 Time of Encounter: 09:48 - Assessment and plan (1) Acute and chronic respiratory failure with hypoxia Current Visit: Yes Status: Acute Assessment and plan: Secondary to severe HCAP no reported history of lung disease however patient may have underlying lung disease given exposure history. will benefit from outpatient follow up with investment banker and PFTS. will continue empiric abx with Vancomycin, Zosyn, f/u blood cultures O2 supplementation bronchodilators as needed closely monitor O2 saturation goal O2 sat>90% will closely monitor respiratory status. (2) HAP (hospital-acquired pneumonia) Current Visit: Yes Status: Acute Assessment and plan: as listed above (3) MOI (acute kidney injury) Current Visit: No Status: Acute Assessment and plan: Likely secondary underlying infection will hold ANDRADE inh at this time renally dose abx avoid nephrotoxic agents monitor renal function closely Renal function improved from previous day (4) Crohn disease Current Visit: No Status: Chronic Assessment and plan: stable continue home medications Qualifiers: Gastrointestinal tract location: small and large intestine Digestive disease complication type: without complication Qualified Code(s): K50.80 - Crohn's disease of both small and large intestine without complications (5) Anemia Current Visit: No Status: Chronic Assessment and plan: H&H low but acceptable no acute bleeding noted at this time continue to monitor H&H and transfuse as needed continue home dose of ferrous sulfate Qualifiers: Anemia type: iron deficiency Iron deficiency anemia type: other iron deficiency Qualified Code(s): D50.8 - Other iron deficiency anemias (6) HTN (hypertension) Current Visit: Yes Status: Chronic Assessment and plan: Noted to be hypertensive this morning Will restart home dose of Nifedipine will closely monitor and hold antihypertensives if SBP<120 Qualifiers: Hypertension type: essential hypertension Qualified Code(s): I10 - Essential (primary) hypertension (7) Hypothyroidism Current Visit: Yes Status: Chronic Assessment and plan: continue home medications Qualifiers: Hypothyroidism type: unspecified Qualified Code(s): E03.9 - Hypothyroidism , unspecified (8) DVT prophylaxis Current Visit: Yes Status: Acute Assessment and plan: Lovenox SQ - Subjective Interval history: Patient seen and examined at bedside. continues to be O2 dependent but reports of feeling better compared to previous day. 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 No overnight issues reported. CT chest consistent with diffuse pna with small right pleural effusion and trace left pleural effusion - Constitutional Vitals: Temp Pulse Resp BP Pulse Ox 97.5 F L 71 16 144/84 94 04/12/17 08:34 04/12/17 08:34 04/12/17 08:34 04/12/17 08:34 04/12/17 08:34 General appearance: Present: A&O X 3, no acute distress, answers questions appropriately - Head Head exam: Present: atraumatic, normocephalic - Eye Eye exam: Present: normal appearance, conjuntiva pink, sclera anicteric - Respiratory Respiratory exam: Absent: respiratory distress, wheezes (coarse breath sounds on the right ) - Cardiovascular Cardiovascular exam: Present: RRR, +S1, +S2. Absent: diastolic murmur, gallop, rubs, systolic murmur - GI/Abdominal GI/Abdominal exam: Present: normal bowel sounds, soft, no peritoneal signs. Absent: distended, tenderness - Extremities Exam Extremities exam: Present: warm, radial pulses palpable and symetrical. Absent : calf tenderness, cyanotic, pedal edema - Neurological Exam Neurological exam: Present: alert, oriented X3 - Psychiatric Psychiatric exam: Present: normal affect, normal mood Internal Medicine: Result - Labs CBC & Chem 7: 04/12/17 04:30 04/12/17 04:30 Labs: Short CBC 04/12/17 Range/Units 04:30 WBC 6.4 (4.3-11.1) K/mcL Hgb 9.6 L (12.9-16.9) g/dL Hct 31.1 L (37.5-50.1) % Plt Count 314 (140-400) K/mcL Neutrophils # 3.5 (1.6-8.9) K/mcL BMP 04/12/17 04:30 Sodium 140 Potassium 4.3 Chloride 103 Carbon Dioxide 28 BUN 19 Creatinine 1.73 H Glucose 81 Calcium 9.3 - ABG Interpretation ABG results: ABG ABG pH 7.30 pH Units (7.32-7.45) L 04/10/17 Unknown ABG pCO2 44 mmHg (35-45) 04/10/17 Unknown ABG pO2 54 mmHg (85-104) L 04/10/17 Unknown ABG O2 Saturation 84 % (95-98) L 04/10/17 Unknown PT/INR, D-dimer PT 15.6 Seconds (9.4-12.1) H 04/10/17 01:22 D-Dimer 3235 ng/mLFEU (0-500) H 04/09/17 18:24 Consult Discharge Plan - Plan Referrals: NO,PCP [Primary Care Provider] -
[2017-04-13] MEDS: Piperacillin/Tazobactam 3.375 GM in D5% in Water (Mini-Bag+) 100 ML IVPB SCH ×3 (00:06→16:58)
[2017-04-13] MEDS: *HR* OxyCODONE Immed Rel 15 MG TABLET PO SCH ×3 (00:10→16:58)
[2017-04-13 04:26] LABS: Basophils # 0.1 K/mcL (0.0-0.2); Basophils % 0.8 %; Eosinophils # 0.4 K/mcL (0.0-0.6); Eosinophils % 5.9 %; Hematocrit 32.1 % (37.5-50.1); Hemoglobin 10.1 g/dL (12.9-16.9); Immature Granulocytes % 0.8 % (0-4); Lymphocytes # 2.2 K/mcL (0.6-4.6); Lymphocytes % 36.3 %; Mean Corpuscular HGB Conc 31.5 g/dL (31.6-35.5); Mean Corpuscular Hemoglobin 25.4 pg (28.0-33.3); Mean Corpuscular Volume 80.9 fL (83.0-100.0); Mean Platelet Volume 9.6 fL (9.4-12.4); Monocytes # 0.5 K/mcL (0.0-1.3); Monocytes % 8.6 %; Neutrophils # 2.9 K/mcL (1.6-8.9); Platelet Count 340 K/mcL (140-400); Red Blood Count 3.97 M/mcL (4.19-5.50); Red Cell Distribution Width 16.9 % (11.5-14.5); Segmented Neutrophils % 47.6 %
[2017-04-13 04:42] LABS: Calcium 9.2 mg/dL (8.6-10.8); Magnesium 1.5 mg/dL (1.6-2.6); Phosphorous 4.5 mg/dL (2.3-4.7)
[2017-04-13] MEDS: *HR* Enoxaparin 40 MG/0.4 ML SYRINGE SQ SCH (05:58)
[2017-04-13] MEDS ORDERED: Magnesium Sulfate 2 GM in D5% in Water 100 ML IVPB ONE (08:17)
[2017-04-13] MEDS: NIFEdipine XL (24 HR) 30 MG TAB.ER.24 PO SCH (10:00)
[2017-04-13] MEDS: Gabapentin 100 MG CAPSULE PO SCH ×3 (10:01→22:32)
--- NOTE | 2017-04-13 12:11 | Internal Med Progress Note ---
Date of Encounter: 04/13/17 Time of Encounter: 12:10 - Assessment and plan (1) Acute and chronic respiratory failure with hypoxia Current Visit: Yes Status: Acute Assessment and plan: Secondary to severe HCAP no reported history of lung disease however patient may have underlying lung disease given exposure history. will benefit from outpatient follow up with career technology teacher and PFTS. will continue empiric abx with Vancomycin, Zosyn, f/u blood cultures O2 supplementation bronchodilators as needed closely monitor O2 saturation goal O2 sat>90% will closely monitor respiratory status. pt encouraged to get out of bed to chair and increase activity as tolerated (2) HAP (hospital-acquired pneumonia) Current Visit: Yes Status: Acute Assessment and plan: as listed above (3) MOI (acute kidney injury) Current Visit: No Status: Acute Assessment and plan: Likely secondary underlying infection will hold ANDRADE inh at this time renally dose abx avoid nephrotoxic agents monitor renal function closely Renal function improved from previous day appears to have underlying CKD once renal function returns to baseline, will resume ANDRADE inh (4) Crohn disease Current Visit: No Status: Chronic Assessment and plan: stable continue home medications Qualifiers: Gastrointestinal tract location: small and large intestine Digestive disease complication type: without complication Qualified Code(s): K50.80 - Crohn's disease of both small and large intestine without complications (5) Anemia Current Visit: No Status: Chronic Assessment and plan: H&H low but acceptable no acute bleeding noted at this time continue to monitor H&H and transfuse as needed continue home dose of ferrous sulfate Qualifiers: Anemia type: iron deficiency Iron deficiency anemia type: other iron deficiency Qualified Code(s): D50.8 - Other iron deficiency anemias (6) HTN (hypertension) Current Visit: Yes Status: Chronic Assessment and plan: Noted to be hypertensive this morning continue home dose of Nifedipine will closely monitor and added Hydralazine 10mg IV q6h prn SBP>150 Qualifiers: Hypertension type: essential hypertension Qualified Code(s): I10 - Essential (primary) hypertension (7) Hypothyroidism Current Visit: Yes Status: Chronic Assessment and plan: continue home medications Qualifiers: Hypothyroidism type: unspecified Qualified Code(s): E03.9 - Hypothyroidism , unspecified (8) DVT prophylaxis Current Visit: Yes Status: Acute Assessment and plan: Lovenox SQ (9) Hypomagnesemia Current Visit: Yes Status: Acute Assessment and plan: Mg supplemented continue to monitor electrolytes and replace as needed - Subjective Interval history: Patient seen and examined at bedside. Resting in bed, noted to have decrease O2 demand and reports of feeling better compared to the previous day. Patient encouraged to get out of bed to chair and ambulate as tolerated. No overnight issues reported. - Constitutional Vitals: Temp Pulse Resp BP Pulse Ox 97.8 F 80 18 132/73 98 04/13/17 11:50 04/13/17 11:50 04/13/17 11:50 04/13/17 11:50 04/13/17 11:50 General appearance: Present: A&O X 3, no acute distress, answers questions appropriately - Head Head exam: Present: atraumatic, normocephalic - Eye Eye exam: Present: conjuntiva pink, sclera anicteric - Respiratory Respiratory exam: Absent: respiratory distress, wheezes (coarse breath sounds on right base) - Cardiovascular Cardiovascular exam: Present: RRR, +S1, +S2. Absent: diastolic murmur, gallop, rubs, systolic murmur - GI/Abdominal GI/Abdominal exam: Present: normal bowel sounds, soft, no peritoneal signs. Absent: distended, tenderness - Extremities Exam Extremities exam: Present: warm, radial pulses palpable and symetrical. Absent : calf tenderness, cyanotic, pedal edema - Neurological Exam Neurological exam: Present: alert, oriented X3 - Psychiatric Psychiatric exam: Present: normal affect, normal mood Internal Medicine: Result - Labs CBC & Chem 7: 04/13/17 03:38 04/13/17 03:38 Labs: Short CBC 04/13/17 Range/Units 03:38 WBC 6.1 (4.3-11.1) K/mcL Hgb 10.1 L (12.9-16.9) g/dL Hct 32.1 L (37.5-50.1) % Plt Count 340 (140-400) K/mcL Neutrophils # 2.9 (1.6-8.9) K/mcL BMP 04/13/17 03:38 Sodium 138 Potassium 4.0 Chloride 102 Carbon Dioxide 31 H BUN 17 Creatinine 1.51 H Glucose 113 H Calcium 9.2 - ABG Interpretation ABG results: ABG ABG pH 7.30 pH Units (7.32-7.45) L 04/10/17 Unknown ABG pCO2 44 mmHg (35-45) 04/10/17 Unknown ABG pO2 54 mmHg (85-104) L 04/10/17 Unknown ABG O2 Saturation 84 % (95-98) L 04/10/17 Unknown PT/INR, D-dimer PT 15.6 Seconds (9.4-12.1) H 04/10/17 01:22 D-Dimer 3235 ng/mLFEU (0-500) H 04/09/17 18:24 Consult Discharge Plan - Plan Referrals: NO,PCP [Primary Care Provider] -
[2017-04-13] MEDS: Acetaminophen 325 MG TABLET PO PRN ×2 (14:46→22:30)
[2017-04-13] MEDS: Vancomycin 1,750 MG in D5% in Water 500 ML IVPB SCH (22:32)
[2017-04-14] MEDS: *HR* OxyCODONE Immed Rel 15 MG TABLET PO SCH ×3 (00:18→17:18)
[2017-04-14] MEDS: Piperacillin/Tazobactam 3.375 GM in D5% in Water (Mini-Bag+) 100 ML IVPB SCH ×2 (00:19→09:22)
[2017-04-14 05:19] LABS: Basophils # 0.1 K/mcL (0.0-0.2); Basophils % 0.8 %; Eosinophils # 0.4 K/mcL (0.0-0.6); Eosinophils % 6.8 %; Hematocrit 33.2 % (37.5-50.1); Hemoglobin 10.1 g/dL (12.9-16.9); Immature Granulocytes % 0.9 % (0-4); Lymphocytes # 2.4 K/mcL (0.6-4.6); Lymphocytes % 36.4 %; Mean Corpuscular HGB Conc 30.4 g/dL (31.6-35.5); Mean Corpuscular Hemoglobin 24.6 pg (28.0-33.3); Mean Platelet Volume 8.8 fL (9.4-12.4); Monocytes # 0.5 K/mcL (0.0-1.3); Monocytes % 7.4 %; Neutrophils # 3.1 K/mcL (1.6-8.9); Nucleated Red Blood Cells 0.3 /100 WBC (0); Platelet Count 355 K/mcL (140-400); Red Cell Distribution Width 16.7 % (11.5-14.5); Segmented Neutrophils % 47.7 %
[2017-04-14 05:37] LABS: Calcium 9.3 mg/dL (8.6-10.8); Magnesium 1.8 mg/dL (1.6-2.6); Phosphorous 4.3 mg/dL (2.3-4.7); Potassium 4.3 mEq/L (3.5-4.5)
[2017-04-14] MEDS: *HR* Enoxaparin 40 MG/0.4 ML SYRINGE SQ SCH (05:56)
[2017-04-14] MEDS: Gabapentin 100 MG CAPSULE PO SCH ×3 (09:22→21:27)
[2017-04-14] MEDS: NIFEdipine XL (24 HR) 30 MG TAB.ER.24 PO SCH (09:22)
--- NOTE | 2017-04-14 11:33 | Internal Med Progress Note ---
Date of Encounter: 04/14/17 Time of Encounter: 11:29 - Assessment and plan (1) Acute and chronic respiratory failure with hypoxia Current Visit: Yes Status: Acute Assessment and plan: Secondary to severe HCAP no reported history of lung disease however patient may have underlying lung disease given exposure history. will benefit from outpatient follow up with fiber heel piece shaper and PFTS. will de-escalate to Levaquin IV qdaily (DAy 03/01 of abx) f/u official blood cultures O2 supplementation bronchodilators as needed closely monitor O2 saturation goal O2 sat>90% will closely monitor respiratory status. pt encouraged to get out of bed to chair and increase activity as tolerated will obtain 6 minute walk O2 qualification test (2) HAP (hospital-acquired pneumonia) Current Visit: Yes Status: Acute Assessment and plan: as listed above (3) MOI (acute kidney injury) Current Visit: No Status: Acute Assessment and plan: Likely secondary underlying infection pt reports of not taking ANDRADE-inh renally dose abx avoid nephrotoxic agents monitor renal function closely reports of having history of CKD unclear of the stage will continue to monitor Vancomycin and Zosyn have been discontinued, however will obtain a random vanco trough to r/o vanco toxicity contributing to worsening renal function (4) Crohn disease Current Visit: No Status: Chronic Assessment and plan: stable continue home medications Qualifiers: Gastrointestinal tract location: small and large intestine Digestive disease complication type: without complication Qualified Code(s): K50.80 - Crohn's disease of both small and large intestine without complications (5) Anemia Current Visit: No Status: Chronic Assessment and plan: H&H low but acceptable no acute bleeding noted at this time continue to monitor H&H and transfuse as needed continue home dose of ferrous sulfate Qualifiers: Anemia type: iron deficiency Iron deficiency anemia type: other iron deficiency Qualified Code(s): D50.8 - Other iron deficiency anemias (6) HTN (hypertension) Current Visit: Yes Status: Chronic Assessment and plan: BP better controlled with Nifedipine, will continue will closely monitor and added Hydralazine 10mg IV q6h prn SBP>150 Qualifiers: Hypertension type: essential hypertension Qualified Code(s): I10 - Essential (primary) hypertension (7) Hypothyroidism Current Visit: Yes Status: Chronic Assessment and plan: continue home medications Qualifiers: Hypothyroidism type: unspecified Qualified Code(s): E03.9 - Hypothyroidism , unspecified (8) DVT prophylaxis Current Visit: Yes Status: Acute Assessment and plan: Lovenox SQ (9) Hypomagnesemia Current Visit: Yes Status: Resolved - Subjective Interval history: Patient seen and examined at bedside. Currently saturating well on room air. Reports of feeling better. Will obtain 6minute walk O2 qualification test as patient has not ambulated much since hospitalization. Will de-escalate abx therapy and likely d/c in am if remains clinically stable over night - Constitutional Vitals: Temp Pulse Resp BP Pulse Ox 98.0 F 76 15 157/107 97 04/14/17 06:57 04/14/17 06:57 04/14/17 06:57 04/14/17 06:57 04/14/17 06:57 General appearance: Present: A&O X 3, no acute distress, answers questions appropriately - Head Head exam: Present: atraumatic, normocephalic - Eye Eye exam: Present: conjuntiva pink, sclera anicteric - Respiratory Respiratory exam: Absent: respiratory distress, wheezes - Cardiovascular Cardiovascular exam: Present: RRR, +S1, +S2. Absent: diastolic murmur, gallop, rubs, systolic murmur - GI/Abdominal GI/Abdominal exam: Present: normal bowel sounds, soft, no peritoneal signs. Absent: distended, tenderness - Extremities Exam Extremities exam: Present: warm, radial pulses palpable and symetrical. Absent : calf tenderness, cyanotic, pedal edema - Neurological Exam Neurological exam: Present: alert, oriented X3 - Psychiatric Psychiatric exam: Present: normal affect, normal mood Internal Medicine: Result - Labs CBC & Chem 7: 04/14/17 04:56 04/14/17 04:56 Labs: Short CBC 04/14/17 Range/Units 04:56 WBC 6.5 (4.3-11.1) K/mcL Hgb 10.1 L (12.9-16.9) g/dL Hct 33.2 L (37.5-50.1) % Plt Count 355 (140-400) K/mcL Neutrophils # 3.1 (1.6-8.9) K/mcL BMP 04/14/17 04:56 Sodium 137 Potassium 4.3 Chloride 102 Carbon Dioxide 26 BUN 21 Creatinine 1.70 H Glucose 106 H Calcium 9.3 - ABG Interpretation ABG results: ABG ABG pH 7.30 pH Units (7.32-7.45) L 04/10/17 Unknown ABG pCO2 44 mmHg (35-45) 04/10/17 Unknown ABG pO2 54 mmHg (85-104) L 04/10/17 Unknown ABG O2 Saturation 84 % (95-98) L 04/10/17 Unknown PT/INR, D-dimer PT 15.6 Seconds (9.4-12.1) H 04/10/17 01:22 D-Dimer 3235 ng/mLFEU (0-500) H 04/09/17 18:24 Consult Discharge Plan - Plan Referrals: NO,PCP [Primary Care Provider] -
[2017-04-14] MEDS: Levofloxacin 750 MG/150 ML 750 MG/150 ML BAG IVPB SCH (13:34)
[2017-04-14] MEDS: Acetaminophen 325 MG TABLET PO PRN (13:34)
[2017-04-15] MEDS: *HR* OxyCODONE Immed Rel 15 MG TABLET PO SCH ×2 (00:10→08:14)
[2017-04-15] MEDS: *HR* Enoxaparin 40 MG/0.4 ML SYRINGE SQ SCH (06:14)
[2017-04-15] MEDS ORDERED: Aminoglycoside Consult 1 EACH MC ONE (07:48)
[2017-04-15] MEDS: Levofloxacin 750 MG/150 ML 750 MG/150 ML BAG IVPB SCH (08:14)
[2017-04-15] MEDS: NIFEdipine XL (24 HR) 30 MG TAB.ER.24 PO SCH (08:14)
[2017-04-15] MEDS: Gabapentin 100 MG CAPSULE PO SCH (08:14)
[2017-04-15 10:10] LABS: Basophils % 0.5 %; Eosinophils # 0.3 K/mcL (0.0-0.6); Eosinophils % 4.3 %; Hematocrit 38.2 % (37.5-50.1); Lymphocytes # 2.6 K/mcL (0.6-4.6); Lymphocytes % 33.7 %; Mean Corpuscular HGB Conc 31.4 g/dL (31.6-35.5); Mean Corpuscular Hemoglobin 25.4 pg (28.0-33.3); Mean Corpuscular Volume 80.8 fL (83.0-100.0); Mean Platelet Volume 8.9 fL (9.4-12.4); Monocytes # 0.5 K/mcL (0.0-1.3); Monocytes % 6.5 %; Neutrophils # 4.2 K/mcL (1.6-8.9); Platelet Count 386 K/mcL (140-400); Red Blood Count 4.73 M/mcL (4.19-5.50); Red Cell Distribution Width 16.8 % (11.5-14.5)
[2017-04-15 10:20] LABS: Calcium 9.9 mg/dL (8.6-10.8); Magnesium 1.9 mg/dL (1.6-2.6); Phosphorous 3.4 mg/dL (2.3-4.7); Potassium 4.4 mEq/L (3.5-4.5)
[2017-04-15 10:31] VITALS: BP 133/84
--- NOTE | 2017-04-15 10:33 | Discharge Summary ---
Date of Encounter: 04/15/17 Time of Encounter: 10:29 - Discharge Diagnosis (1) Acute and chronic respiratory failure with hypoxia Priority: Primary Status: Acute (2) HAP (hospital-acquired pneumonia) Priority: Primary Status: Acute (3) MOI (acute kidney injury) Priority: Secondary Status: Chronic Comments: history of CKD unknown Stage renal function at baseline (4) Crohn disease Priority: Secondary Status: Chronic Qualifiers: Gastrointestinal tract location: small and large intestine Digestive disease complication type: without complication Qualified Code(s): K50.80 - Crohn's disease of both small and large intestine without complications (5) Anemia Priority: Secondary Status: Chronic Qualifiers: Anemia type: iron deficiency Iron deficiency anemia type: other iron deficiency Qualified Code(s): D50.8 - Other iron deficiency anemias (6) HTN (hypertension) Priority: Secondary Status: Chronic Qualifiers: Hypertension type: essential hypertension Qualified Code(s): I10 - Essential (primary) hypertension (7) Hypothyroidism Priority: Secondary Status: Chronic Qualifiers: Hypothyroidism type: unspecified Qualified Code(s): E03.9 - Hypothyroidism , unspecified (8) DVT prophylaxis Priority: Secondary Status: Acute (9) Hypomagnesemia Priority: Secondary Status: Resolved - Discharge Medications Prescriptions: levoFLOXacin [Levaquin] 750 mg PO DAILY #4 tablet Home Medications: Amitriptyline HCl 150 mg PO HS 02/27/17 [History] Cholecalciferol (D-3) [Vitamin D] 5,000 unit PO DAILY 02/27/17 [History] Dicyclomine [Bentyl] 20 mg PO TIDWM 02/27/17 [History] Gabapentin [Neurontin] 100 mg PO TID 02/27/17 [History] Hydrocortisone 1% OINT [Cortaid] 1 appl TP BID PRN 02/27/17 [History] Levothyroxine [Synthroid] 150 mcg PO DAILY 02/27/17 [History] Lipase/Protease/Amylase [Creon Dr 12,000 Units Capsule] 1 each PO TIDWM [History] Metoprolol [Lopressor] 50 mg PO BID 02/27/17 [History] NIFEdipine [Nifedipine ER] 90 mg PO DAILY 02/27/17 [History] Omeprazole [PriLOSEC] 20 - 40 mg PO DAILY 02/27/17 [History] Ondansetron HCl [Zofran] 4 mg PO Q8H PRN 02/27/17 [History] Oxycodone HCl [Roxicodone 30 MG Immed Release] 30 mg PO Q8HR 02/27/17 [History] Ferrous Sulfate [Iron] 325 mg PO BID #60 capsule.er 03/01/17 [Rx] Adalimumab [Humira] 40 mg SQ Q2W 04/09/17 [History] levoFLOXacin [Levaquin] 750 mg PO DAILY #4 tablet 04/15/17 [Rx] Allergies/Adverse Reactions: Allergies morphine Allergy (Verified 06/25/15 16:27) Weakness NSAIDS (Non-Steroidal Anti-Inflamma Allergy (Verified 06/25/15 16:27) See Comments Date of admission: 04/11/17 08:00 Primary care physician: MARA LOYD Discharging clinician: Nat Mendes Anticipated date of discharge: 04/15/17 - Patient Status Disposition: Home, Self-Care Condition: Good Functional capacity at discharge: independent ambulation Overall status at discharge: patient is back to baseline - Discharge Instructions Follow Up With: Theresa Rose MD [Partnered Physician] - (appointment requested) EVERT,PCP [Primary Care Provider] - (spoke with patient about setting him up with new MD, patient stated he was in the process of doing so at [facility] at this time and that he would be able to follow up within 2 weeks there. The doctor he had before has retired and they are setting him up with another.) Additional Instructions: Please follow up with your primary care physician within five days after your discharge from the hospital. Please follow up with pulmonology after your discharge and ask your ve teacher if pulmonary function tests can be obtained given your exposure history. Please continue oral antibiotic as prescribed. Please closely monitor your Blood pressure at home. Hold your blood pressure medications (Metoprolol and Nifedipine) if you systolic blood pressure is less than 100. Please resume all your other home medications as prescribed by your primary care physician. - Diet and Activity Activity: resume usual activities as tolerated Diet: low salt diet Hospital course: Mr. Hodge is a 56 year old male with PMH of Crohn's disease, HTN, psoriasis , thyroid disease who was admitted with acute respiratory failure secondary to HCAP. Patient was started on empiric IV abx and O2 supplementation. He responded appropriately to therapy with resolution of his presenting symptoms. 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 pt has never been diagnosed with lung disease however given his exposure history pt is advised to follow up with pulmonology after discharge for further evaluation. He was able to be titrated off oxygen therapy and currently saturating well on room air. He did not qualify for home oxygen with the 6 minute walk test. At this time he is hemodynamically stable and will be discharged to home with follow up with PCP and pulm. Pt demonstrates understanding of his diagnosis and agrees with the discharge care and plan. - Time Spent with Patient Total time spent providing and/or coordinating discharge services: Less than 30 minutes - Constitutional Vitals: Temp Pulse Resp BP Pulse Ox 98.6 F 81 16 167/104 94 04/14/17 22:59 04/15/17 07:00 04/15/17 07:00 04/15/17 07:00 04/15/17 07:00 General appearance: Present: cooperative, A&O X 3, pleasant, no acute distress, answers questions appropriately - Head Head exam: Present: atraumatic, normocephalic - Eye Eye exam: Present: conjuntiva pink, sclera anicteric - Respiratory Respiratory exam: Present: CTAB. Absent: accessory muscle use, rales, rhonchi, wheezes - Cardiovascular Cardiovascular exam: Present: RRR, +S1, +S2. Absent: diastolic murmur, gallop, rubs, systolic murmur - GI/Abdominal GI/Abdominal exam: Present: normal bowel sounds, soft, no peritoneal signs. Absent: distended, tenderness - Extremities Exam Extremities exam: Present: warm, radial pulses palpable and symetrical. Absent : calf tenderness, cyanotic, pedal edema - Neurological Exam Neurological exam: Present: alert, oriented X3 - Psychiatric Psychiatric exam: Present: normal affect, normal mood
== END 2017-04-15 12:18 | disposition home or self-care (01) | DRG 193 ==
LOC: 2NENU 17:36 → EMEROO 17:36 → 2NENU 20:58
PROVIDERS: ADMIT Internal Medicine; ATTEND Internal Medicine

== ENCOUNTER 2021-08-07 19:26 | Inpatient (IN) ==
[2021-08-07] MEDS ORDERED: Isovue-370 500 ML BOTTLE IVP ONE (20:16)
[2021-08-07 20:17] LABS: Basophils % 0.6 %; Eosinophils # 0.2 K/mcL (0.0-0.6); Eosinophils % 2.2 %; Hematocrit 37.2 % (37.5-50.1); Hemoglobin 11.7 g/dL (12.9-16.9); Immature Granulocytes % 0.1 % (0-4); Lymphocytes # 2.5 K/mcL (0.6-4.6); Lymphocytes % 35.3 %; Mean Corpuscular HGB Conc 31.5 g/dL (31.6-35.5); Mean Corpuscular Hemoglobin 28.1 pg (28.0-33.3); Mean Corpuscular Volume 89.2 fL (83.0-100.0); Monocytes # 0.5 K/mcL (0.0-1.3); Monocytes % 6.6 %; Neutrophils # 3.8 K/mcL (1.6-8.9); Platelet Count 257 K/mcL (140-400); Red Blood Count 4.17 M/mcL (4.19-5.50); Red Cell Distribution Width 14.8 % (11.5-14.5); Segmented Neutrophils % 55.2 %; White Blood Count 6.9 K/mcL (4.3-11.1)
[2021-08-07 20:54] LABS: Calcium 8.7 mg/dL (8.6-10.3); Potassium 4.6 mEq/L (3.5-5.1); Troponin I 0.06 ng/mL (< 0.04)
[2021-08-07 21:09] LABS: Albumin 4.1 g/dL (3.5-5.7); Albumin/Globulin Ratio 1.3 (1.1-2.2); Bilirubin,Direct 0.2 mg/dL (0.0-0.2); Bilirubin,Indirect 0.5 mg/dL (0.0-1.0); Bilirubin,Total 0.7 mg/dL (0.3-1.0); Globulin 3.2 g/dL (2.4-3.5); Magnesium 1.6 mg/dL (1.6-2.6); Total Protein 7.3 g/dL (6.4-8.9)
[2021-08-08] MEDS ORDERED: Naloxone 0.4 MG/ML INJ IVP PRN (00:30)
[2021-08-08] MEDS ORDERED: Perflutren Lipid Microsphere 1.3 ML in 0.9 % Sodium Chloride 8.7 ML IVP PRN (02:18)
[2021-08-08] MEDS ORDERED: *HR* Heparin 5,000 UNIT/ML VIAL SQ SCH (06:00)
[2021-08-08 06:20] LABS: Hematocrit 39.1 % (37.5-50.1); Hemoglobin 11.8 g/dL (12.9-16.9); Mean Corpuscular HGB Conc 30.2 g/dL (31.6-35.5); Mean Corpuscular Hemoglobin 26.9 pg (28.0-33.3); Mean Corpuscular Volume 89.3 fL (83.0-100.0); Mean Platelet Volume 10.4 fL (9.4-12.4); Platelet Count 236 K/mcL (140-400); Red Blood Count 4.38 M/mcL (4.19-5.50); Red Cell Distribution Width 14.7 % (11.5-14.5); White Blood Count 5.5 K/mcL (4.3-11.1)
[2021-08-08 06:45] LABS: Troponin I 0.06 ng/mL (< 0.04)
[2021-08-08 06:55] LABS: Calcium 9.1 mg/dL (8.6-10.3); Potassium 4.2 mEq/L (3.5-5.1)
[2021-08-08] MEDS: amLODIPine 5 MG TABLET PO SCH (08:59)
[2021-08-08] MEDS ORDERED: *HR* Heparin 5,000 UNIT/ML VIAL IVP ONE (16:53)
[2021-08-08] MEDS ORDERED: *HR* Heparin 5,000 UNIT/ML VIAL IVP PRN ×2 (16:53)
[2021-08-08 17:55] LABS: INR 1.2; Prothrombin Time 13.3 Seconds (9.4-12.1)
[2021-08-08 17:57] LABS: Heparin anti-factor XA UFH < 0.04 IU/mL (0.30-0.70)
[2021-08-08] MEDS: Aspirin 81 MG TAB.CHEW PO SCH (17:59)
[2021-08-08] MEDS: Heparin 25,000UNIT/250ML 1/2NS 25,000 UNIT/250 ML IV.SOLN IVC SCH (18:00)
[2021-08-08] MEDS: Melatonin 3 MG TABLET PO PRN (23:28)
[2021-08-09 00:44] LABS: Hematocrit 33.9 % (37.5-50.1); Hemoglobin 10.4 g/dL (12.9-16.9); Mean Corpuscular HGB Conc 30.7 g/dL (31.6-35.5); Mean Corpuscular Hemoglobin 27.2 pg (28.0-33.3); Mean Corpuscular Volume 88.5 fL (83.0-100.0); Mean Platelet Volume 10.1 fL (9.4-12.4); Platelet Count 207 K/mcL (140-400); Red Blood Count 3.83 M/mcL (4.19-5.50); Red Cell Distribution Width 14.7 % (11.5-14.5); White Blood Count 5.9 K/mcL (4.3-11.1)
[2021-08-09 09:18] LABS: Hematocrit 34.1 % (37.5-50.1); Hemoglobin 10.8 g/dL (12.9-16.9)
[2021-08-09] MEDS: Aspirin 81 MG TAB.CHEW PO SCH (09:33)
[2021-08-09] MEDS: amLODIPine 5 MG TABLET PO SCH (09:34)
[2021-08-09 09:41] LABS: Calcium 8.5 mg/dL (8.6-10.3); Potassium 4.5 mEq/L (3.5-5.1)
[2021-08-09] MEDS: lisinopriL 5 MG TABLET PO SCH (12:32)
[2021-08-09 14:20] LABS: Influenza A PCR Negative (Negative); Influenza B PCR Negative (Negative); Resp. Syncytial Virus PCR Negative (Negative)
[2021-08-09 14:24] LABS: SARS-CoV-2 by PCR (In House) Negative (Negative)
[2021-08-09] MEDS ORDERED: Heparin 1,000 UNITS/500 mL 500 ML ONE (14:52)
[2021-08-09] MEDS ORDERED: ISOVUE-370 200 ML INFUS..BTL ONE (14:52)
[2021-08-09] MEDS ORDERED: *HR* Heparin 10,000 UNIT/10 ML VIAL ONE (14:52)
[2021-08-09] MEDS ORDERED: Nitroglycerin 1,000 MCG/5 ML VIAL IV ONE (14:53)
[2021-08-09] MEDS ORDERED: 0.9 % Sodium Chloride 2,000 ML ONE (14:53)
[2021-08-09] MEDS ORDERED: *HR* FentaNYL (PF) 100 MCG/2 ML VIAL ONE (14:56)
[2021-08-09] MEDS ORDERED: *HR* Midazolam HCl 2 MG/2 ML VIAL ONE (14:56)
[2021-08-09] MEDS: Heparin 25,000UNIT/250ML 1/2NS 25,000 UNIT/250 ML IV.SOLN IVC SCH (16:15)
[2021-08-09] MEDS: Furosemide 20 MG TABLET PO SCH (18:38)
[2021-08-09] MEDS: Melatonin 3 MG TABLET PO PRN (23:30)
[2021-08-10] MEDS ORDERED: Nitroglycerin 0.4 MG TAB.SUBL SL PRN (00:04)
[2021-08-10 00:46] LABS: Basophils % 0.7 %; Eosinophils # 0.2 K/mcL (0.0-0.6); Hematocrit 34.2 % (37.5-50.1); Hemoglobin 10.7 g/dL (12.9-16.9); Immature Granulocytes % 0.2 % (0-4); Lymphocytes # 2.4 K/mcL (0.6-4.6); Lymphocytes % 39.5 %; Mean Corpuscular HGB Conc 31.3 g/dL (31.6-35.5); Mean Corpuscular Hemoglobin 27.6 pg (28.0-33.3); Mean Corpuscular Volume 88.4 fL (83.0-100.0); Mean Platelet Volume 9.7 fL (9.4-12.4); Monocytes # 0.5 K/mcL (0.0-1.3); Neutrophils # 2.9 K/mcL (1.6-8.9); Platelet Count 228 K/mcL (140-400); Red Blood Count 3.87 M/mcL (4.19-5.50); Red Cell Distribution Width 14.9 % (11.5-14.5); Segmented Neutrophils % 47.6 %
[2021-08-10 01:09] LABS: Albumin 3.4 g/dL (3.5-5.7); Albumin/Globulin Ratio 1.3 (1.1-2.2); Bilirubin,Total 0.6 mg/dL (0.3-1.0); Calcium 8.1 mg/dL (8.6-10.3); Globulin 2.7 g/dL (2.4-3.5); Potassium 4.1 mEq/L (3.5-5.1); Total Protein 6.1 g/dL (6.4-8.9); Troponin I 0.04 ng/mL (< 0.04)
[2021-08-10 03:56] LABS: Amphetamine Screen,Urine Negative ng/mL (Cutoff=1000); Barbiturate Screen,Urine Negative ng/mL (Cutoff=200); Benzodiazepines Screen,Urine Positive ng/mL (Cutoff=200); Cannabinoid Screen,Urine Negative ng/mL (Cutoff = 50); Cocaine Screen,Urine Negative ng/mL (Cutoff= 300); Opiate Screen,Urine Negative ng/mL (Cutoff=300); Phencyclidine Screen,Urine Negative ng/mL (Cutoff=25)
[2021-08-10 06:56] VITALS: TEMP 98.1
[2021-08-10] MEDS: Aspirin 81 MG TAB.CHEW PO SCH (07:52)
[2021-08-10] MEDS: amLODIPine 5 MG TABLET PO SCH (07:52)
[2021-08-10] MEDS: Furosemide 20 MG TABLET PO SCH (07:52)
[2021-08-10] MEDS: lisinopriL 5 MG TABLET PO SCH (07:52)
[2021-08-10] MEDS ORDERED: Isosorbide MONOnitrate (24 HR) 30 MG TAB.ER.24H PO SCH (09:00)
[2021-08-10 10:34] VITALS: BP 134/74; PULSE 85; O2SAT 96
[2021-08-10] MEDS ORDERED: Spironolactone 12.5 MG TABLET PO SCH (12:30)
[2021-08-10] MEDS ORDERED: carvediloL 6.25 MG TABLET PO SCH (17:00)
== END 2021-08-10 13:53 | disposition home or self-care (01) | DRG 281 ==
LOC: 3BNU 19:26 → EMEROOARM 19:26 → 3BNU 08-08 00:08
PROVIDERS: ADMIT Internal Medicine; ATTEND Internal Medicine